=== PATIENT | male | born 1975 | race Two or more races ===

== ENCOUNTER 2017-10-19 22:37 | Emergency (ER) | payer SELFPAY ==
[~2017-10-19] VITALS: Ht 177.8 cm; Wt 99.8 kg
[2017-10-19] MEDS ORDERED: NIFEdipine 10 MG CAP ONE (23:03)
[2017-10-19] MEDS ORDERED: NIFEdipine 10 MG CAP PO ONE (23:15)
[2017-10-20] MEDS ORDERED: KETOROLAC TROMETH 60MG/2ML VIAL IM ONE (02:15)
[2017-10-20 02:38] VITALS: BP 154/93
== END 2017-10-20 03:08 | disposition home or self-care (01) ==
LOC: ER 22:44
DX: M17.11 Unilateral primary osteoarthritis, right knee (principal); I10 Essential (primary) hypertension; E11.9 Type 2 diabetes mellitus without complications
CPT/HCPCS: 73562; 96372; 99284; J1885

== ENCOUNTER 2018-03-22 10:37 | Emergency (ER) | payer SELFPAY ==
[~2018-03-22] VITALS: Ht 177.8 cm; Wt 98.9 kg
[2018-03-22] MEDS ORDERED: cloNIDine HCL 0.1 MG TAB ONE (11:04)
[2018-03-22] MEDS ORDERED: cloNIDine HCL 0.1 MG TAB PO ONE (11:15)
[2018-03-22 11:41] LABS: Basophils # (auto) 0.1 uL; Basophils % (auto) 0.7 % (0.0-2.0); Eosinophils # (auto) 0.1 uL; Eosinophils % (auto) 0.6 % (0.0-7.0); Hematocrit 31.6 % (41.0-53.0); Hemoglobin 11.2 g/dL (13.5-17.5); Lymphocytes # (auto) 0.6 uL; Lymphocytes % (auto) 3.9 % (10.0-50.0); Mean Corpuscular Hemoglobin 31.1 pg (28.0-32.0); Mean Corpuscular Hgb Conc. 35.4 g/dL (32.0-36.0); Mean Corpuscular Volume 87.8 fL (80.0-100.0); Monocytes # (auto) 0.8 uL; Monocytes % (auto) 5.8 % (0.0-12.0); Neutrophils # (auto) 12.9 uL; Platelet Count (auto) 261 10^3/uL (140-450); Red Cell Distribution Width 13.2 % (11.8-14.3); White Blood Cell 14.5 10^3/uL (4.4-10.8)
[2018-03-22 11:50] LABS: Urine Bacteria FEW /hpf (None Seen); Urine Blood 2+ /uL (Negative); Urine Specific Gravity 1.017 (1.001-1.035); Urine WBC 5 /hpf (0 - 3)
[2018-03-22 11:56] LABS: Albumin 2.7 g/dL (3.4-5.0); Calcium 7.1 mg/dL (8.5-10.1); INR 0.94 (0.9-1.15); Partial Thromboplastin Time 34.2 sec (23.78-33.04); Prothrombin Time 10.1 sec (9.27-12.13)
[2018-03-22] MEDS ORDERED: LABETALOL HCL 5 MG/ML ML 20ML VIAL IV ONE (12:00)
[2018-03-22 12:01] LABS: BUN/Creatinine Ratio 8.5; Bilirubin, Total 0.5 mg/dL (0.2-1.0); Total Protein 7.8 g/dL (6.4-8.2)
[2018-03-22 12:03] LABS: Potassium 2.6 mmol/L (3.5-5.1)
[2018-03-22] MEDS ORDERED: SODIUM CHLORIDE 0.9% 1,000 ML IV ONE (12:11)
[2018-03-22 12:45] LABS: Alcohol, Urine < 3.0 mg/dL (0-5); Amphetamine Screen, Urine NEGATIVE (NEGATIVE); Barbiturate Scree,Urine NEGATIVE (NEGATIVE); Benzodiazephine Screen, Urine NEGATIVE (NEGATIVE); Cannabinoid Screen, Urine NEGATIVE (NEGATIVE); Cocaine Screen, Urine NEGATIVE (NEGATIVE); Opiate Scree,Urine NEGATIVE (NEGATIVE); Phencyclidine Screen, Urine NEGATIVE (NEGATIVE)
[2018-03-22 14:36] VITALS: BP 153/91
== END 2018-03-22 15:43 | disposition short-term general hospital (02) ==
LOC: ER 10:37
DX: I10 Essential (primary) hypertension (principal); E11.65 Type 2 diabetes mellitus with hyperglycemia; N17.9 Acute kidney failure, unspecified; E43 Unspecified severe protein-calorie malnutrition; I61.9 Nontraumatic intracerebral hemorrhage, unspecified; R79.89 Other specified abnormal findings of blood chemistry
CPT/HCPCS: 36415; 70450; 71046; 80053; 80307; 81001; 82962; 83735; 84443; 84484; 85025; 85610; 85730; 93005; 94761; 96374

== ENCOUNTER 2020-11-27 20:28 | Emergency (ER) | payer MEDICAID, OTHER ==
[~2020-11-27] VITALS: Ht 177.8 cm; Wt 84.4 kg
[2020-11-27 23:02] LABS: Basophils # (auto) 0 10 ^3/uL (0-0.2); Basophils % (auto) 0.3 % (0.0-2.0); Eosinophils # (auto) 0 10 ^3/uL (0-0.8); Eosinophils % (auto) 0.1 % (0.0-7.0); Hematocrit 26.2 % (41.0-53.0); Hemoglobin 9.4 g/dL (13.5-17.5); Lymphocytes # (auto) 0.3 10 ^3/uL (0.4-5.4); Lymphocytes % (auto) 3.1 % (10.0-50.0); Mean Corpuscular Hemoglobin 33.6 pg (28.0-32.0); Mean Corpuscular Hgb Conc. 35.8 g/dL (32.0-36.0); Mean Corpuscular Volume 93.8 fL (80.0-100.0); Monocytes # (auto) 0.6 10 ^3/uL (0-1.3); Monocytes % (auto) 6.9 % (0.0-12.0); Neutrophils % (auto) 89.6 % (37.0-80.0); Nucleated Red Blood Cells % 0.1 %; Red Blood Cells 2.79 10^6/uL (4.5-5.90); Red Cell Distribution Width 14.2 % (11.8-14.3); White Blood Cell 8.9 10^3/uL (4.4-10.8)
[2020-11-27 23:24] LABS: Albumin 3.1 g/dL (3.4-5.0); Calcium 8.3 mg/dL (8.5-10.1); Magnesium 2.5 mg/dL (1.6-2.6); Potassium 3.3 mmol/L (3.5-5.1)
[2020-11-27 23:27] LABS: BUN/Creatinine Ratio 3.6
[2020-11-27 23:32] LABS: Bilirubin, Total 0.8 mg/dL (0.2-1.0); Total Protein 7.3 g/dL (6.4-8.2)
[2020-11-28 05:26] VITALS: BP 132/73
== END 2020-11-28 05:08 | disposition home or self-care (01) ==
LOC: EDBD 20:28 → ER 20:28
DX: D64.9 Anemia, unspecified (principal); R11.2 Nausea with vomiting, unspecified; R05 Cough; I12.0 Hypertensive chronic kidney disease with stage 5 chronic kidney disease or end stage renal disease; E11.22 Type 2 diabetes mellitus with diabetic chronic kidney disease; N18.6 End stage renal disease; Z99.2 Dependence on renal dialysis
CPT/HCPCS: 36415; 80053; 83735; 83880; 84484; 85025; 85049; 93005

== ENCOUNTER 2021-12-08 15:30 | Inpatient (IN) | payer MEDICAID ==
[~2021-12-08] VITALS: Ht 170.2 cm; Wt 81.7 kg
[2021-12-08] MEDS ORDERED: SUCCINYLCHOLINE CHLORIDE 20 MG/ML 10ML VIAL IV ONE ×2 (16:00→17:30)
[2021-12-08] MEDS ORDERED: ETOMIDATE (2MG/ML) 20ML VIAL IV ONE (16:00)
[2021-12-08] MEDS ORDERED: methylPREDNISolone SOD SUCC 125 MG/2 ML VL IV ONE (16:00)
[2021-12-08] MEDS: MIDAZOLAM DRIP 50 mg/50mL 50 ML IV SCH (16:05)
[2021-12-08] MEDS ORDERED: MIDAZOLAM DRIP 50 mg/50mL 50 ML IV ONE (16:07)
[2021-12-08] MEDS ORDERED: FUROSEMIDE 40 MG/4 ML VIAL ONE (16:12)
[2021-12-08] MEDS ORDERED: AZITHROMYCIN 500MG/ 250ML 250 ML IV ONE (16:15)
[2021-12-08] MEDS ORDERED: FUROSEMIDE 40 MG/4 ML VIAL IV ONE (16:30)
[2021-12-08] MEDS ORDERED: PROPOFOL 100 ML IV ONE ×2 (16:32→19:49)
[2021-12-08] MEDS: PROPOFOL 100 ML IV SCH (16:45)
[2021-12-08] MEDS ORDERED: FUROSEMIDE 100 MG/10ML VIAL IV ONE (17:45)
[2021-12-08 18:00] VITALS: BP 118/80
[2021-12-08] MEDS ORDERED: SODIUM CHL 0.9% 1000 ML BAG XX ONE (18:00)
[2021-12-08 18:25] LABS: Basophils # (auto) 0.1 10 ^3/uL (0-0.2); Basophils % (auto) 0.7 % (0.0-2.0); Eosinophils # (auto) 0.1 10 ^3/uL (0-0.8); Eosinophils % (auto) 0.6 % (0.0-7.0); Hematocrit 32.1 % (41.0-53.0); Hemoglobin 10.3 g/dL (13.5-17.5); Lymphocytes # (auto) 0.3 10 ^3/uL (0.4-5.4); Lymphocytes % (auto) 2.4 % (10.0-50.0); Mean Corpuscular Hemoglobin 29.4 pg (28.0-32.0); Mean Corpuscular Hgb Conc. 32.1 g/dL (32.0-36.0); Mean Corpuscular Volume 91.7 fL (80.0-100.0); Monocytes # (auto) 0.3 10 ^3/uL (0-1.3); Monocytes % (auto) 2.4 % (0.0-12.0); Neutrophils # (auto) 10.8 10 ^3/uL (1.6-8.6); Neutrophils % (auto) 93.9 % (37.0-80.0); Red Cell Distribution Width 16.6 % (11.8-14.3); White Blood Cell 11.5 10^3/uL (4.4-10.8)
[2021-12-08 18:41] LABS: Albumin 3.1 g/dL (3.4-5.0); Calcium 8.2 mg/dL (8.5-10.1); Magnesium 3.3 mg/dL (1.6-2.6)
[2021-12-08 18:46] LABS: Lactic Acid w/Reflex 2.6 mmol/L (0.4-2.0)
[2021-12-08 18:51] LABS: BUN/Creatinine Ratio 4.2; CRP High Sensitivity 4.85 mg/dL (< 0.3); Total Protein 7.3 g/dL (6.4-8.2)
[2021-12-08 19:02] LABS: Potassium 6.1 mmol/L (3.5-5.1)
[2021-12-08] MEDS ORDERED: ONDANSETRON HCL 4 MG/2 ML VIAL IV PRN (19:30)
[2021-12-08] MEDS ORDERED: DOCUSATE SOD 100 MG CAP PO PRN (19:30)
[2021-12-08] MEDS ORDERED: HYDROcodone-ACET 5/325MG TAB PO PRN (19:30)
[2021-12-08] MEDS ORDERED: NOREPINEPHRINE 8 MG/250ML KIT 250 ML IV ONE (19:33)
[2021-12-08] MEDS ORDERED: ALBUMIN 25% 100 ML IV ONE ×2 (19:49→19:57)
[2021-12-08] MEDS: ALBUMIN 25% 100 ML IV PRN ×2 (19:50→20:41)
[2021-12-08 20:00] VITALS: BP 112/78
[2021-12-08] MEDS: NOREPINEPHRINE 8 MG/250ML KIT 250 ML IV SCH (20:18)
[2021-12-08] MEDS ORDERED: REMDESIVIR PER PHARMACY 0 ML IV SCH (21:00)
[2021-12-08 21:41] VITALS: BP 88/60
[2021-12-08 22:00] VITALS: BP 126/87
[2021-12-08 22:36] LABS: INR 1.1 (0.9-1.15); Partial Thromboplastin Time 31.4 sec (23.6-33.0)
[2021-12-09] VITALS (57 sets, daily range): BP systolic 118–163; BP diastolic 47–92
[2021-12-09 06:07] LABS: Basophils # (auto) 0 10 ^3/uL (0-0.2); Basophils % (auto) 0.2 % (0.0-2.0); Eosinophils # (auto) 0 10 ^3/uL (0-0.8); Hematocrit 27.1 % (41.0-53.0); Hemoglobin 8.9 g/dL (13.5-17.5); Lymphocytes # (auto) 0.3 10 ^3/uL (0.4-5.4); Lymphocytes % (auto) 5.3 % (10.0-50.0); Mean Corpuscular Volume 90.9 fL (80.0-100.0); Monocytes # (auto) 0.5 10 ^3/uL (0-1.3); Monocytes % (auto) 7.8 % (0.0-12.0); Neutrophils # (auto) 5.4 10 ^3/uL (1.6-8.6); Neutrophils % (auto) 86.7 % (37.0-80.0); Red Blood Cells 2.98 10^6/uL (4.5-5.90); Red Cell Distribution Width 16.4 % (11.8-14.3); White Blood Cell 6.2 10^3/uL (4.4-10.8)
[2021-12-09 06:22] LABS: Potassium 4.8 mmol/L (3.5-5.1)
[2021-12-09 06:33] LABS: Albumin 3.3 g/dL (3.4-5.0); BUN/Creatinine Ratio 4.4; Bilirubin, Total 0.9 mg/dL (0.2-1.0); Calcium 8.6 mg/dL (8.5-10.1); Total Protein 6.8 g/dL (6.4-8.2)
[2021-12-09] MEDS ORDERED: ENOXAPARIN SOD 30 MG/0.3 ML SYRINGE SC SCH (10:00)
[2021-12-09] MEDS: PROPOFOL 100 ML IV SCH (11:18)
[2021-12-09] MEDS ORDERED: IOHEXOL 350 MG/ML 100ML IJ ONE (12:14)
[2021-12-09] MEDS: IPRATROPIUM BROM 0.5 MG/2.5ML INH SOL NEB SCH ×3 (14:16→22:02)
[2021-12-09] MEDS ORDERED: OPTISON 3ml Vial for INJ IV ONE ×2 (14:30→15:00)
[2021-12-09] MEDS: NOREPINEPHRINE 8 MG/250ML KIT 250 ML IV SCH (19:45)
[2021-12-09] MEDS: ATORVASTATIN 20 MG TAB PO SCH (20:40)
[2021-12-09] MEDS: ENALAPRIL MALEATE 2.5 MG TAB PO SCH (20:41)
[2021-12-09] MEDS: METOPROLOL TARTRATE 25 MG TAB PO SCH (20:41)
[2021-12-09] MEDS: hydrALAZINE HCL 20 MG/ML VL IV PRN (23:09)
[2021-12-10] VITALS (82 sets, daily range): BP systolic 105–164; BP diastolic 69–87
[2021-12-10] MEDS: IPRATROPIUM BROM 0.5 MG/2.5ML INH SOL NEB SCH ×6 (02:42→22:11)
[2021-12-10] MEDS: PROPOFOL 100 ML IV SCH ×3 (03:55→22:14)
[2021-12-10] MEDS: MIDAZOLAM DRIP 50 mg/50mL 50 ML IV SCH ×2 (03:56→19:29)
[2021-12-10 06:28] LABS: Basophils # (auto) 0 10 ^3/uL (0-0.2); Basophils % (auto) 0.7 % (0.0-2.0); Eosinophils # (auto) 0.1 10 ^3/uL (0-0.8); Lymphocytes # (auto) 0.5 10 ^3/uL (0.4-5.4); Lymphocytes % (auto) 6.8 % (10.0-50.0); Mean Corpuscular Hemoglobin 30.1 pg (28.0-32.0); Mean Corpuscular Hgb Conc. 33.4 g/dL (32.0-36.0); Mean Corpuscular Volume 90.3 fL (80.0-100.0); Monocytes # (auto) 0.6 10 ^3/uL (0-1.3); Monocytes % (auto) 8.4 % (0.0-12.0); Neutrophils # (auto) 5.9 10 ^3/uL (1.6-8.6); Neutrophils % (auto) 83.1 % (37.0-80.0); Red Blood Cells 2.99 10^6/uL (4.5-5.90); Red Cell Distribution Width 16.7 % (11.8-14.3); White Blood Cell 7.1 10^3/uL (4.4-10.8)
[2021-12-10 06:46] LABS: BUN/Creatinine Ratio 5.5; Calcium 8.6 mg/dL (8.5-10.1); Potassium 5.2 mmol/L (3.5-5.1)
[2021-12-10] MEDS ORDERED: SODIUM CHL 0.9% 1000 ML BAG XX ONE (07:00)
[2021-12-10] MEDS: PANTOPRAZOLE 40 MG/10 ML VIAL INJ IV SCH (09:05)
[2021-12-10] MEDS: AZITHROMYCIN 500MG/ 250ML 250 ML IV SCH (09:05)
[2021-12-10] MEDS: ENALAPRIL MALEATE 2.5 MG TAB PO SCH ×2 (10:00→22:28)
[2021-12-10] MEDS: METOPROLOL TARTRATE 25 MG TAB PO SCH ×2 (10:00→22:00)
[2021-12-10] MEDS: hydrALAZINE HCL 20 MG/ML VL IV PRN (15:08)
[2021-12-10] MEDS: NOREPINEPHRINE 8 MG/250ML KIT 250 ML IV SCH (19:29)
[2021-12-10] MEDS: ACETAMINOPHEN 325 MG TAB PO PRN (19:35)
[2021-12-10] MEDS: ATORVASTATIN 20 MG TAB PO SCH (22:28)
[2021-12-11] VITALS (78 sets, daily range): BP systolic 133–184; BP diastolic 39–88
[2021-12-11] MEDS: hydrALAZINE HCL 20 MG/ML VL IV PRN ×4 (01:55→22:47)
[2021-12-11] MEDS: PROPOFOL 100 ML IV SCH ×2 (02:07→05:45)
[2021-12-11] MEDS: IPRATROPIUM BROM 0.5 MG/2.5ML INH SOL NEB SCH ×5 (02:33→18:13)
[2021-12-11 06:11] LABS: Basophils # (auto) 0 10 ^3/uL (0-0.2); Basophils % (auto) 0.7 % (0.0-2.0); Eosinophils # (auto) 0.1 10 ^3/uL (0-0.8); Hematocrit 26.5 % (41.0-53.0); Hemoglobin 8.9 g/dL (13.5-17.5); Lymphocytes # (auto) 0.6 10 ^3/uL (0.4-5.4); Lymphocytes % (auto) 8.6 % (10.0-50.0); Mean Corpuscular Hemoglobin 30.2 pg (28.0-32.0); Mean Corpuscular Hgb Conc. 33.4 g/dL (32.0-36.0); Mean Corpuscular Volume 90.2 fL (80.0-100.0); Monocytes # (auto) 0.6 10 ^3/uL (0-1.3); Monocytes % (auto) 9.9 % (0.0-12.0); Neutrophils # (auto) 5.1 10 ^3/uL (1.6-8.6); Neutrophils % (auto) 78.8 % (37.0-80.0); Nucleated Red Blood Cells % 0.2 %; Red Blood Cells 2.94 10^6/uL (4.5-5.90); Red Cell Distribution Width 16.4 % (11.8-14.3); White Blood Cell 6.5 10^3/uL (4.4-10.8)
[2021-12-11 06:18] LABS: BUN/Creatinine Ratio 5.2; Calcium 8.7 mg/dL (8.5-10.1); Potassium 4.5 mmol/L (3.5-5.1)
[2021-12-11] MEDS ORDERED: cloNIDine 0.2 mg/24hr 7DAY PATCH TD SCH (08:00)
[2021-12-11] MEDS: AZITHROMYCIN 500MG/ 250ML 250 ML IV SCH (08:47)
[2021-12-11] MEDS: PANTOPRAZOLE 40 MG/10 ML VIAL INJ IV SCH (08:47)
[2021-12-11] MEDS: ENALAPRIL MALEATE 2.5 MG TAB PO SCH ×2 (09:56→22:00)
[2021-12-11] MEDS: METOPROLOL TARTRATE 25 MG TAB PO SCH ×2 (09:56→22:00)
[2021-12-11] MEDS: MIDAZOLAM DRIP 50 mg/50mL 50 ML IV SCH (16:46)
[2021-12-11] MEDS: LORazepam 2MG/ML-1ML VIAL IV PRN (17:51)
[2021-12-11] MEDS: NOREPINEPHRINE 8 MG/250ML KIT 250 ML IV SCH (19:45)
[2021-12-11] MEDS: ATORVASTATIN 20 MG TAB PO SCH (22:00)
[2021-12-12] VITALS (27 sets, daily range): BP systolic 140–180; BP diastolic 58–92
[2021-12-12] MEDS: hydrALAZINE HCL 20 MG/ML VL IV PRN ×2 (02:47→06:48)
[2021-12-12] MEDS ORDERED: ALBUTEROL SULF 2.5 MG/0.5ML(0.5%) NEB SOLN NEB SCH (06:00)
[2021-12-12] MEDS ORDERED: IPRATROPIUM BROM 0.5 MG/2.5ML INH SOL NEB SCH (06:00)
[2021-12-12 06:28] LABS: Basophils # (auto) 0 10 ^3/uL (0-0.2); Basophils % (auto) 0.7 % (0.0-2.0); Eosinophils # (auto) 0.2 10 ^3/uL (0-0.8); Eosinophils % (auto) 2.5 % (0.0-7.0); Hematocrit 28.4 % (41.0-53.0); Hemoglobin 9.3 g/dL (13.5-17.5); Lymphocytes # (auto) 0.4 10 ^3/uL (0.4-5.4); Mean Corpuscular Hemoglobin 29.7 pg (28.0-32.0); Mean Corpuscular Hgb Conc. 32.8 g/dL (32.0-36.0); Mean Corpuscular Volume 90.6 fL (80.0-100.0); Monocytes # (auto) 0.6 10 ^3/uL (0-1.3); Monocytes % (auto) 9.5 % (0.0-12.0); Neutrophils # (auto) 5.5 10 ^3/uL (1.6-8.6); Neutrophils % (auto) 81.3 % (37.0-80.0); Red Blood Cells 3.13 10^6/uL (4.5-5.90); Red Cell Distribution Width 16.5 % (11.8-14.3); White Blood Cell 6.8 10^3/uL (4.4-10.8)
[2021-12-12 06:30] LABS: BUN/Creatinine Ratio 5.6; Potassium 4.6 mmol/L (3.5-5.1)
[2021-12-12] MEDS ORDERED: SODIUM CHL 0.9% 1000 ML BAG XX ONE (07:00)
[2021-12-12] MEDS: AZITHROMYCIN 500MG/ 250ML 250 ML IV SCH (09:53)
[2021-12-12] MEDS: PANTOPRAZOLE 40 MG/10 ML VIAL INJ IV SCH (09:53)
[2021-12-12] MEDS: ASCORBIC ACID 500 MG TAB PO SCH (09:54)
[2021-12-12] MEDS: METOPROLOL TARTRATE 25 MG TAB PO SCH (09:54)
[2021-12-12] MEDS: ENALAPRIL MALEATE 2.5 MG TAB PO SCH (09:54)
[2021-12-12] MEDS: ZINC SULFATE 220mg CAP or TAB PO SCH (09:54)
[2021-12-12] MEDS: CHOLECALCIFEROL (VITD3) 2,000 UNIT CAP/TAB PO SCH (09:55)
[2021-12-12] MEDS: NOREPINEPHRINE 8 MG/250ML KIT 250 ML IV SCH (19:45)
[2021-12-12] MEDS ORDERED: EPOETIN ALFA-EPBX 4,000 UNIT/ML VIAL SC ONE (21:00)
[2021-12-13] VITALS (60 sets, daily range): BP systolic 141–190; BP diastolic 68–93
[2021-12-13] MEDS ORDERED: ALBUTEROL SULF 2.5 MG/0.5ML(0.5%) NEB SOLN NEB PRN
[2021-12-13] MEDS ORDERED: IPRATROPIUM BROM 0.5 MG/2.5ML INH SOL NEB PRN
[2021-12-13] MEDS: ENALAPRIL MALEATE 2.5 MG TAB PO SCH ×2 (00:09→08:47)
[2021-12-13] MEDS: ATORVASTATIN 20 MG TAB PO SCH ×2 (00:09→22:32)
[2021-12-13] MEDS: METOPROLOL TARTRATE 25 MG TAB PO SCH ×3 (00:09→22:33)
[2021-12-13] MEDS: hydrALAZINE HCL 20 MG/ML VL IV PRN ×4 (00:24→23:33)
[2021-12-13 05:51] LABS: BUN/Creatinine Ratio 4.8; Calcium 9.4 mg/dL (8.5-10.1); Potassium 3.6 mmol/L (3.5-5.1)
[2021-12-13 05:54] LABS: Basophils # (auto) 0 10 ^3/uL (0-0.2); Basophils % (auto) 0.9 % (0.0-2.0); Eosinophils # (auto) 0.2 10 ^3/uL (0-0.8); Eosinophils % (auto) 3.6 % (0.0-7.0); Hemoglobin 9.3 g/dL (13.5-17.5); Lymphocytes # (auto) 0.4 10 ^3/uL (0.4-5.4); Lymphocytes % (auto) 7.2 % (10.0-50.0); Mean Corpuscular Hgb Conc. 33.3 g/dL (32.0-36.0); Mean Corpuscular Volume 90.1 fL (80.0-100.0); Monocytes # (auto) 0.7 10 ^3/uL (0-1.3); Monocytes % (auto) 13.4 % (0.0-12.0); Neutrophils # (auto) 3.9 10 ^3/uL (1.6-8.6); Neutrophils % (auto) 74.9 % (37.0-80.0); Red Blood Cells 3.11 10^6/uL (4.5-5.90); White Blood Cell 5.2 10^3/uL (4.4-10.8)
[2021-12-13] MEDS: NOREPINEPHRINE 8 MG/250ML KIT 250 ML IV SCH (07:31)
[2021-12-13] MEDS: AZITHROMYCIN 500MG/ 250ML 250 ML IV SCH (08:44)
[2021-12-13] MEDS: ASCORBIC ACID 500 MG TAB PO SCH (08:44)
[2021-12-13] MEDS: PANTOPRAZOLE 40 MG/10 ML VIAL INJ IV SCH (08:44)
[2021-12-13] MEDS: CHOLECALCIFEROL (VITD3) 2,000 UNIT CAP/TAB PO SCH (08:45)
[2021-12-13] MEDS: ZINC SULFATE 220mg CAP or TAB PO SCH (08:48)
[2021-12-13] MEDS ORDERED: amLODIPine BESYLATE 5 MG TAB PO SCH (10:00)
[2021-12-13] MEDS ORDERED: cloNIDine 0.2 mg/24hr 7DAY PATCH TD SCH (10:45)
[2021-12-13] MEDS ORDERED: METOPROLOL TARTRATE 25 MG TAB PO ONE (11:00)
[2021-12-13] MEDS: NIFEdipine ER 30 MG TAB PO SCH (11:07)
[2021-12-13] MEDS ORDERED: cloNIDine 0.3 mg/24hr 7DAY PATCH TD SCH (12:30)
[2021-12-13] MEDS: LOSARTAN POTASSIUM 50 MG TAB PO SCH (22:31)
[2021-12-13] MEDS: LORazepam 2MG/ML-1ML VIAL IV PRN (23:30)
[2021-12-14 05:00] VITALS: BP 165/79
[2021-12-14] MEDS: hydrALAZINE HCL 20 MG/ML VL IV PRN ×2 (05:10→22:57)
[2021-12-14 06:29] LABS: Basophils # (auto) 0.1 10 ^3/uL (0-0.2); Basophils % (auto) 1.1 % (0.0-2.0); Eosinophils # (auto) 0.2 10 ^3/uL (0-0.8); Eosinophils % (auto) 3.1 % (0.0-7.0); Lymphocytes # (auto) 0.6 10 ^3/uL (0.4-5.4); Lymphocytes % (auto) 7.6 % (10.0-50.0); Mean Corpuscular Hemoglobin 30.1 pg (28.0-32.0); Mean Corpuscular Hgb Conc. 33.3 g/dL (32.0-36.0); Mean Corpuscular Volume 90.4 fL (80.0-100.0); Monocytes % (auto) 13.1 % (0.0-12.0); Neutrophils # (auto) 5.5 10 ^3/uL (1.6-8.6); Neutrophils % (auto) 75.1 % (37.0-80.0); Nucleated Red Blood Cells % 0.1 %; Red Blood Cells 3.32 10^6/uL (4.5-5.90); Red Cell Distribution Width 16.2 % (11.8-14.3); White Blood Cell 7.3 10^3/uL (4.4-10.8)
[2021-12-14 06:36] LABS: BUN/Creatinine Ratio 5.1
[2021-12-14 09:44] VITALS: BP 157/81
[2021-12-14] MEDS: PANTOPRAZOLE 40 MG/10 ML VIAL INJ IV SCH (10:03)
[2021-12-14] MEDS: ZINC SULFATE 220mg CAP or TAB PO SCH (10:03)
[2021-12-14] MEDS: AZITHROMYCIN 500MG/ 250ML 250 ML IV SCH (10:03)
[2021-12-14] MEDS: ASCORBIC ACID 500 MG TAB PO SCH (10:04)
[2021-12-14] MEDS: METOPROLOL TARTRATE 25 MG TAB PO SCH ×2 (10:04→21:12)
[2021-12-14] MEDS: NIFEdipine ER 30 MG TAB PO SCH (10:04)
[2021-12-14] MEDS: LOSARTAN POTASSIUM 50 MG TAB PO SCH ×2 (10:04→21:11)
[2021-12-14] MEDS: CHOLECALCIFEROL (VITD3) 2,000 UNIT CAP/TAB PO SCH (10:05)
[2021-12-14] MEDS ORDERED: LACTULOSE 20Gm/30ML SOLN PO PRN (11:45)
[2021-12-14] MEDS ORDERED: DOCUSATE SOD 100 MG CAP PO PRN (11:45)
[2021-12-14 12:55] VITALS: BP 144/86
[2021-12-14] MEDS: LORazepam 2MG/ML-1ML VIAL IV PRN (21:10)
[2021-12-14] MEDS: ATORVASTATIN 20 MG TAB PO SCH (21:14)
[2021-12-14 22:00] VITALS: BP 168/84
[2021-12-15 05:00] VITALS: BP 154/75
[2021-12-15 06:31] LABS: Basophils # (auto) 0.1 10 ^3/uL (0-0.2); Basophils % (auto) 1.5 % (0.0-2.0); Eosinophils # (auto) 0.2 10 ^3/uL (0-0.8); Eosinophils % (auto) 3.4 % (0.0-7.0); Hematocrit 29.4 % (41.0-53.0); Hemoglobin 9.6 g/dL (13.5-17.5); Lymphocytes # (auto) 0.8 10 ^3/uL (0.4-5.4); Lymphocytes % (auto) 11.6 % (10.0-50.0); Mean Corpuscular Hemoglobin 29.5 pg (28.0-32.0); Mean Corpuscular Hgb Conc. 32.7 g/dL (32.0-36.0); Mean Corpuscular Volume 90.5 fL (80.0-100.0); Monocytes # (auto) 0.9 10 ^3/uL (0-1.3); Monocytes % (auto) 14.2 % (0.0-12.0); Neutrophils # (auto) 4.5 10 ^3/uL (1.6-8.6); Neutrophils % (auto) 69.3 % (37.0-80.0); Red Blood Cells 3.25 10^6/uL (4.5-5.90); Red Cell Distribution Width 16.1 % (11.8-14.3); White Blood Cell 6.5 10^3/uL (4.4-10.8)
[2021-12-15 06:39] LABS: Potassium 4.1 mmol/L (3.5-5.1)
[2021-12-15 06:49] LABS: BUN/Creatinine Ratio 5.3; Calcium 9.5 mg/dL (8.5-10.1)
[2021-12-15] MEDS ORDERED: SODIUM CHL 0.9% 1000 ML BAG XX ONE (07:00)
[2021-12-15 09:00] VITALS: BP 168/66
[2021-12-15] MEDS: PANTOPRAZOLE 40 MG/10 ML VIAL INJ IV SCH (10:00)
[2021-12-15] MEDS: ZINC SULFATE 220mg CAP or TAB PO SCH (10:00)
[2021-12-15] MEDS: CHOLECALCIFEROL (VITD3) 2,000 UNIT CAP/TAB PO SCH (10:00)
[2021-12-15] MEDS: AZITHROMYCIN 500MG/ 250ML 250 ML IV SCH (10:00)
[2021-12-15] MEDS: NIFEdipine ER 30 MG TAB PO SCH (10:00)
[2021-12-15] MEDS: LOSARTAN POTASSIUM 50 MG TAB PO SCH ×2 (10:00→21:05)
[2021-12-15] MEDS: ASCORBIC ACID 500 MG TAB PO SCH (10:00)
[2021-12-15] MEDS: METOPROLOL TARTRATE 25 MG TAB PO SCH ×2 (10:00→21:06)
[2021-12-15] MEDS: hydrALAZINE HCL 20 MG/ML VL IV PRN (10:03)
[2021-12-15 17:11] VITALS: BP 170/92
[2021-12-15] MEDS: ATORVASTATIN 20 MG TAB PO SCH (21:06)
[2021-12-15 22:23] VITALS: BP 167/87
[2021-12-15] MEDS: LORazepam 2MG/ML-1ML VIAL IV PRN (22:45)
[2021-12-16] MEDS: hydrALAZINE HCL 20 MG/ML VL IV PRN ×2 (04:00→17:46)
[2021-12-16 05:01] VITALS: BP 168/83
[2021-12-16 05:46] LABS: Basophils # (auto) 0.1 10 ^3/uL (0-0.2); Eosinophils # (auto) 0.1 10 ^3/uL (0-0.8); Eosinophils % (auto) 1.3 % (0.0-7.0); Hematocrit 30.8 % (41.0-53.0); Lymphocytes # (auto) 0.5 10 ^3/uL (0.4-5.4); Lymphocytes % (auto) 5.7 % (10.0-50.0); Mean Corpuscular Hemoglobin 29.6 pg (28.0-32.0); Mean Corpuscular Hgb Conc. 32.5 g/dL (32.0-36.0); Mean Corpuscular Volume 91.1 fL (80.0-100.0); Monocytes # (auto) 1.1 10 ^3/uL (0-1.3); Monocytes % (auto) 11.8 % (0.0-12.0); Neutrophils # (auto) 7.5 10 ^3/uL (1.6-8.6); Neutrophils % (auto) 80.2 % (37.0-80.0); Red Blood Cells 3.38 10^6/uL (4.5-5.90); Red Cell Distribution Width 16.3 % (11.8-14.3); White Blood Cell 9.4 10^3/uL (4.4-10.8)
[2021-12-16 06:02] LABS: BUN/Creatinine Ratio 5.1; Calcium 9.5 mg/dL (8.5-10.1); Potassium 4.4 mmol/L (3.5-5.1)
[2021-12-16 08:15] VITALS: BP 153/80
[2021-12-16] MEDS: PANTOPRAZOLE 40 MG/10 ML VIAL INJ IV SCH (09:00)
[2021-12-16] MEDS: AZITHROMYCIN 500MG/ 250ML 250 ML IV SCH (09:01)
[2021-12-16] MEDS: CHOLECALCIFEROL (VITD3) 2,000 UNIT CAP/TAB PO SCH (09:01)
[2021-12-16] MEDS: ZINC SULFATE 220mg CAP or TAB PO SCH (09:01)
[2021-12-16] MEDS: ASCORBIC ACID 500 MG TAB PO SCH (09:01)
[2021-12-16] MEDS: NIFEdipine ER 30 MG TAB PO SCH (09:03)
[2021-12-16] MEDS: LOSARTAN POTASSIUM 50 MG TAB PO SCH ×2 (09:03→21:41)
[2021-12-16] MEDS: METOPROLOL TARTRATE 25 MG TAB PO SCH ×2 (09:04→21:41)
[2021-12-16 12:31] VITALS: BP 138/71
[2021-12-16 16:05] VITALS: BP 159/77
[2021-12-16] MEDS: ATORVASTATIN 20 MG TAB PO SCH (21:41)
[2021-12-16] MEDS: LORazepam 2MG/ML-1ML VIAL IV PRN (21:44)
[2021-12-16 22:00] VITALS: BP 140/72
[2021-12-17 05:00] VITALS: BP 152/82
[2021-12-17] MEDS ORDERED: SODIUM CHL 0.9% 1000 ML BAG XX ONE (07:00)
[2021-12-17 09:22] VITALS: BP 162/78
[2021-12-17] MEDS: AZITHROMYCIN 500MG/ 250ML 250 ML IV SCH (10:52)
[2021-12-17] MEDS: PANTOPRAZOLE 40 MG/10 ML VIAL INJ IV SCH (10:53)
[2021-12-17] MEDS: METOPROLOL TARTRATE 25 MG TAB PO SCH ×2 (10:54→21:41)
[2021-12-17] MEDS: ASCORBIC ACID 500 MG TAB PO SCH (10:54)
[2021-12-17] MEDS: NIFEdipine ER 30 MG TAB PO SCH (10:54)
[2021-12-17] MEDS: CHOLECALCIFEROL (VITD3) 2,000 UNIT CAP/TAB PO SCH (10:55)
[2021-12-17] MEDS: ZINC SULFATE 220mg CAP or TAB PO SCH (10:55)
[2021-12-17] MEDS: LOSARTAN POTASSIUM 50 MG TAB PO SCH ×2 (10:57→21:40)
[2021-12-17 13:00] VITALS: BP 157/79
[2021-12-17 16:15] VITALS: BP 139/79
[2021-12-17 20:00] VITALS: BP 139/79
[2021-12-17] MEDS: ATORVASTATIN 20 MG TAB PO SCH (21:41)
[2021-12-17] MEDS: LORazepam 2MG/ML-1ML VIAL IV PRN (22:31)
[2021-12-18 05:00] VITALS: BP 152/82
[2021-12-18 09:00] VITALS: BP 149/76
[2021-12-18] MEDS: LOSARTAN POTASSIUM 50 MG TAB PO SCH ×2 (10:00→23:01)
[2021-12-18] MEDS: AZITHROMYCIN 500MG/ 250ML 250 ML IV SCH (10:00)
[2021-12-18] MEDS: METOPROLOL TARTRATE 25 MG TAB PO SCH ×2 (10:00→23:03)
[2021-12-18] MEDS: NIFEdipine ER 30 MG TAB PO SCH (10:00)
[2021-12-18] MEDS: ASCORBIC ACID 500 MG TAB PO SCH (10:00)
[2021-12-18] MEDS: ZINC SULFATE 220mg CAP or TAB PO SCH (10:00)
[2021-12-18] MEDS: CHOLECALCIFEROL (VITD3) 2,000 UNIT CAP/TAB PO SCH (10:00)
[2021-12-18] MEDS: PANTOPRAZOLE 40 MG/10 ML VIAL INJ IV SCH (11:02)
[2021-12-18 13:00] VITALS: BP 132/50
[2021-12-18 17:00] VITALS: BP 149/51
[2021-12-18 22:00] VITALS: BP 161/91
[2021-12-18] MEDS: ATORVASTATIN 20 MG TAB PO SCH (23:02)
[2021-12-18] MEDS: ACETAMINOPHEN 325 MG TAB PO PRN (23:04)
[2021-12-19 03:09] VITALS: BP 136/88
== END 2021-12-19 03:52 | disposition short-term general hospital (02) | DRG 720 ==
LOC: EDUNIT# 15:30 → ER 15:30 → TELE 19:30 → DOU IN ICU 12-09 08:02 → ICU CENTRL 12-09 10:03 → TELE-CENTR 12-13 15:00
PROVIDERS: ADMIT Internal Medicine; ATTEND Nurse Practitioner
PROC: 5A1945Z Respiratory Ventilation, 24-96 Consecutive Hours (ICD-10-PCS; principal; 2021-12-08)
PROC: 0BH17EZ Insertion of Endotracheal Airway into Trachea, Via Natural or Artificial Opening (ICD-10-PCS; 2021-12-08)
PROC: 06HM33Z Insertion of Infusion Device into Right Femoral Vein, Percutaneous Approach (ICD-10-PCS; 2021-12-08)
PROC: 5A1D70Z Performance of Urinary Filtration, Intermittent, Less than 6 Hours Per Day (ICD-10-PCS; 2021-12-08)
PROC: 5A1D70Z Performance of Urinary Filtration, Intermittent, Less than 6 Hours Per Day (ICD-10-PCS; 2021-12-10)
PROC: 5A1D70Z Performance of Urinary Filtration, Intermittent, Less than 6 Hours Per Day (ICD-10-PCS; 2021-12-12)
PROC: 5A1D70Z Performance of Urinary Filtration, Intermittent, Less than 6 Hours Per Day (ICD-10-PCS; 2021-12-15)
PROC: 5A1D70Z Performance of Urinary Filtration, Intermittent, Less than 6 Hours Per Day (ICD-10-PCS; 2021-12-18)
DX: A41.9 Sepsis, unspecified organism (principal); J96.01 Acute respiratory failure with hypoxia; J12.82 Pneumonia due to coronavirus disease 2019; R65.21 Severe sepsis with septic shock; G92.8 Other toxic encephalopathy; U07.1 COVID-19; G93.1 Anoxic brain damage, not elsewhere classified; I16.1 Hypertensive emergency; N40.0 Benign prostatic hyperplasia without lower urinary tract symptoms; N18.6 End stage renal disease; D63.1 Anemia in chronic kidney disease; E87.5 Hyperkalemia; E11.22 Type 2 diabetes mellitus with diabetic chronic kidney disease; I50.20 Unspecified systolic (congestive) heart failure; Z20.822 Contact with and (suspected) exposure to COVID-19; I13.2 Hypertensive heart and chronic kidney disease with heart failure and with stage 5 chronic kidney disease, or end stage renal disease; Z79.899 Other long term (current) drug therapy; Z80.0 Family history of malignant neoplasm of digestive organs; Z85.028 Personal history of other malignant neoplasm of stomach; Z86.73 Personal history of transient ischemic attack (TIA), and cerebral infarction without residual deficits; Z99.2 Dependence on renal dialysis
CPT/HCPCS: 36415; 36600; 70450; 71045; 71275; 80048; 80053; 82728; 82805; 83605; 83735; 83880; 84484; 85025; 85379; 85610; 85730; 86141; 87040; 87070; 87081; 87205; 87340; 90935; 92610; 93005; 93306; 93886; 94002; 94003; 94640; 94660; 95819; 96374; 97163; 99291; C9113; G0378; J2250; J2704; J7060; P9047; Q9956

== ENCOUNTER 2022-06-09 12:14 | Inpatient (IN) | payer MEDICAID ==
[~2022-06-09] VITALS: Ht 177.8 cm; Wt 75.0 kg
[2022-06-09] MEDS ORDERED: LABETALOL HCL 5 MG/ML 4ML SYRINGE IV ONE (12:30)
[2022-06-09 12:46] LABS: Basophils # (auto) 0.1 10 ^3/uL (0-0.2); Basophils % (auto) 1.3 % (0.0-2.0); Eosinophils # (auto) 0 10 ^3/uL (0-0.8); Eosinophils % (auto) 0.7 % (0.0-7.0); Hematocrit 29.5 % (41.0-53.0); Hemoglobin 9.7 g/dL (13.5-17.5); Lymphocytes # (auto) 0.8 10 ^3/uL (0.4-5.4); Lymphocytes % (auto) 11.8 % (10.0-50.0); Mean Corpuscular Hemoglobin 31.1 pg (28.0-32.0); Mean Corpuscular Hgb Conc. 32.9 g/dL (32.0-36.0); Mean Corpuscular Volume 94.4 fL (80.0-100.0); Monocytes # (auto) 0.5 10 ^3/uL (0-1.3); Monocytes % (auto) 7.9 % (0.0-12.0); Neutrophils # (auto) 5.4 10 ^3/uL (1.6-8.6); Neutrophils % (auto) 78.3 % (37.0-80.0); Red Blood Cells 3.12 10^6/uL (4.5-5.90); Red Cell Distribution Width 16.6 % (11.8-14.3); White Blood Cell 6.8 10^3/uL (4.4-10.8)
[2022-06-09 12:56] LABS: Albumin 3.6 g/dL (3.4-5.0); Calcium 8.5 mg/dL (8.5-10.1); Potassium 4.6 mmol/L (3.5-5.1)
[2022-06-09 13:00] LABS: BUN/Creatinine Ratio 5.9; Bilirubin, Total 0.6 mg/dL (0.2-1.0); Total Protein 6.7 g/dL (6.4-8.2)
[2022-06-09] MEDS ORDERED: ENOXAPARIN SOD 80 MG/0.8ML SYRINGE SC ONE (15:30)
[2022-06-09] MEDS ORDERED: NITROGLYCERIN 0.4 MG SL TAB SL PRN (17:00)
[2022-06-09] MEDS ORDERED: ACETAMINOPHEN 500 MG TAB PO PRN (17:00)
[2022-06-09] MEDS ORDERED: ONDANSETRON HCL 4 MG/2 ML VIAL IV PRN (17:00)
[2022-06-09] MEDS: hydrALAZINE HCL 20 MG/ML VL IV PRN (20:11)
[2022-06-09] MEDS: MORPHINE SULFATE INJ 2 MG/ml SYRG IV PRN (20:12)
[2022-06-09] MEDS ORDERED: ATORVASTATIN 20 MG TAB PO SCH (22:00)
[2022-06-09] MEDS: METOPROLOL TARTRATE 25 MG TAB PO SCH (22:42)
[2022-06-10] VITALS (7 sets, daily range): BP systolic 128–154; BP diastolic 72–87
[2022-06-10] MEDS: MORPHINE SULFATE INJ 2 MG/ml SYRG IV PRN ×3 (00:07→14:23)
[2022-06-10] MEDS: hydrALAZINE HCL 20 MG/ML VL IV PRN ×3 (01:25→17:23)
[2022-06-10] MEDS: HYDROcodone-ACET 5/325MG TAB PO PRN ×3 (01:25→22:15)
[2022-06-10] MEDS: TEMAZEPAM 15 MG CAP PO PRN ×2 (01:58→23:58)
[2022-06-10 05:21] LABS: Basophils # (auto) 0.1 10 ^3/uL (0-0.2); Basophils % (auto) 1.1 % (0.0-2.0); Eosinophils # (auto) 0.1 10 ^3/uL (0-0.8); Hematocrit 28.7 % (41.0-53.0); Hemoglobin 9.7 g/dL (13.5-17.5); Lymphocytes # (auto) 0.9 10 ^3/uL (0.4-5.4); Lymphocytes % (auto) 11.1 % (10.0-50.0); Mean Corpuscular Hemoglobin 32.2 pg (28.0-32.0); Mean Corpuscular Hgb Conc. 33.9 g/dL (32.0-36.0); Mean Corpuscular Volume 94.9 fL (80.0-100.0); Monocytes # (auto) 0.8 10 ^3/uL (0-1.3); Monocytes % (auto) 9.2 % (0.0-12.0); Neutrophils # (auto) 6.6 10 ^3/uL (1.6-8.6); Neutrophils % (auto) 77.6 % (37.0-80.0); Red Blood Cells 3.02 10^6/uL (4.5-5.90); Red Cell Distribution Width 16.4 % (11.8-14.3); White Blood Cell 8.5 10^3/uL (4.4-10.8)
[2022-06-10 05:39] LABS: BUN/Creatinine Ratio 6.4; Calcium 8.6 mg/dL (8.5-10.1)
[2022-06-10] MEDS: NITROGLYCERIN 0.4MG/HR TOPICAL PATCH TD SCH (09:33)
[2022-06-10] MEDS: LISINOPRIL 10 MG TAB PO SCH ×2 (09:33→09:41)
[2022-06-10] MEDS: METOPROLOL TARTRATE 25 MG TAB PO SCH ×2 (09:33→09:41)
[2022-06-10] MEDS: ASPirin-EC 81 mg tab PO SCH (09:33)
[2022-06-10] MEDS ORDERED: ENOXAPARIN SOD 80 MG/0.8ML SYRINGE SC SCH (10:00)
[2022-06-10] MEDS ORDERED: SODIUM CHL 0.9% 1000 ML BAG XX ONE (11:30)
[2022-06-10] MEDS: NIFEdipine ER 30 MG TAB PO SCH (12:30)
[2022-06-10] MEDS ORDERED: LIDOCAINE 2%HCL (LOCAL ANESTH.) INJ 10ml MDV ONE (17:57)
[2022-06-10] MEDS ORDERED: IODIXANOL 320MG/ML 100ML BTL IV ONE ×2 (17:57→18:30)
[2022-06-10] MEDS ORDERED: ANGIOMAX 250 MG VIAL IV ONE (17:58)
[2022-06-10] MEDS ORDERED: fentaNYL CITRATE 100 MCG/2 ML VL ONE (17:58)
[2022-06-10] MEDS ORDERED: MIDAZOLAM HCL 2MG/2ML 2ml VIAL (1mg/ml) ONE (17:59)
[2022-06-10] MEDS ORDERED: SODIUM CHL 0.9% 50 ML ONE (17:59)
[2022-06-10] MEDS ORDERED: METOPROLOL TARTRATE 1MG/1ML-5ML VIAL IV ONE (18:14)
[2022-06-10] MEDS ORDERED: hydrALAZINE HCL 20 MG/ML VL ONE (18:38)
[2022-06-10] MEDS ORDERED: TICAGRELOR 90 MG TAB ONE (18:46)
[2022-06-10] MEDS ORDERED: cloNIDine HCL 0.1 MG TAB PO ONE (19:00)
[2022-06-10] MEDS ORDERED: cloNIDine HCL 0.1 MG TAB PO PRN (19:15)
[2022-06-10] MEDS ORDERED: EPOETIN ALFA-EPBX 10,000 UNIT/1ML VIAL SC ONE (21:00)
[2022-06-10] MEDS ORDERED: METOPROLOL TARTRATE 25 MG TAB PO SCH (22:00)
[2022-06-10] MEDS ORDERED: NIFE1TAB31 PO (22:26)
[2022-06-11] VITALS (7 sets, daily range): BP systolic 120–164; BP diastolic 1–84
[2022-06-11] MEDS: MORPHINE SULFATE INJ 2 MG/ml SYRG IV PRN ×3 (01:58→17:38)
[2022-06-11] MEDS: HYDROcodone-ACET 5/325MG TAB PO PRN ×2 (04:38→13:17)
[2022-06-11 06:16] LABS: Basophils # (auto) 0 10 ^3/uL (0-0.2); Basophils % (auto) 0.8 % (0.0-2.0); Eosinophils # (auto) 0.1 10 ^3/uL (0-0.8); Eosinophils % (auto) 1.2 % (0.0-7.0); Hematocrit 25.8 % (41.0-53.0); Hemoglobin 8.5 g/dL (13.5-17.5); Lymphocytes # (auto) 0.5 10 ^3/uL (0.4-5.4); Lymphocytes % (auto) 8.5 % (10.0-50.0); Mean Corpuscular Hemoglobin 31.3 pg (28.0-32.0); Mean Corpuscular Hgb Conc. 32.7 g/dL (32.0-36.0); Mean Corpuscular Volume 95.6 fL (80.0-100.0); Monocytes # (auto) 0.6 10 ^3/uL (0-1.3); Monocytes % (auto) 9.2 % (0.0-12.0); Neutrophils # (auto) 4.9 10 ^3/uL (1.6-8.6); Neutrophils % (auto) 80.3 % (37.0-80.0); Nucleated Red Blood Cells % 0.1 %; Red Cell Distribution Width 16.3 % (11.8-14.3); White Blood Cell 6.1 10^3/uL (4.4-10.8)
[2022-06-11 06:32] LABS: Potassium 4.8 mmol/L (3.5-5.1)
[2022-06-11 06:38] LABS: BUN/Creatinine Ratio 6.2; Calcium 8.5 mg/dL (8.5-10.1)
[2022-06-11] MEDS: ASPirin-EC 81 mg tab PO SCH (09:39)
[2022-06-11] MEDS: NIFEdipine ER 30 MG TAB PO SCH (09:40)
[2022-06-11] MEDS: LISINOPRIL 10 MG TAB PO SCH (09:41)
[2022-06-11] MEDS: NITROGLYCERIN 0.4MG/HR TOPICAL PATCH TD SCH (09:42)
[2022-06-11] MEDS ORDERED: METOPROLOL TARTRATE 50 MG TAB PO SCH (10:00)
[2022-06-11] MEDS ORDERED: TICAGRELOR 90 MG TAB PO SCH (10:00)
[2022-06-11] MEDS ORDERED: LOSARTAN POTASSIUM 50 MG TAB PO SCH (10:00)
[2022-06-11] MEDS ORDERED: TICA90TA PO (11:39)
[2022-06-11] MEDS ORDERED: ATORVASTATIN 20 MG TAB PO SCH (22:00)
== END 2022-06-11 18:35 | disposition home or self-care (01) | DRG 174 ==
LOC: ER 12:14 → EDBD 12:14 → TELE 16:53 → TELE-EAST 06-10 20:00
PROVIDERS: ADMIT Nurse Practitioner Acute Care; ATTEND Nurse Practitioner Acute Care
PROC: 027035Z Dilation of Coronary Artery, One Artery with Two Drug-eluting Intraluminal Devices, Percutaneous Approach (ICD-10-PCS; principal; 2022-06-10)
PROC: B213YZZ Fluoroscopy of Multiple Coronary Artery Bypass Grafts using Other Contrast (ICD-10-PCS; 2022-06-10)
PROC: 4A023N7 Measurement of Cardiac Sampling and Pressure, Left Heart, Percutaneous Approach (ICD-10-PCS; 2022-06-10)
PROC: B218YZZ Fluoroscopy of Left Internal Mammary Bypass Graft using Other Contrast (ICD-10-PCS; 2022-06-10)
PROC: B215YZZ Fluoroscopy of Left Heart using Other Contrast (ICD-10-PCS; 2022-06-10)
PROC: 5A1D70Z Performance of Urinary Filtration, Intermittent, Less than 6 Hours Per Day (ICD-10-PCS; 2022-06-10)
DX: I21.4 Non-ST elevation (NSTEMI) myocardial infarction (principal); I12.0 Hypertensive chronic kidney disease with stage 5 chronic kidney disease or end stage renal disease; E11.22 Type 2 diabetes mellitus with diabetic chronic kidney disease; D63.1 Anemia in chronic kidney disease; L97.509 Non-pressure chronic ulcer of other part of unspecified foot with unspecified severity; N18.6 End stage renal disease; Z20.822 Contact with and (suspected) exposure to COVID-19; M89.8X9 Other specified disorders of bone, unspecified site; E11.621 Type 2 diabetes mellitus with foot ulcer; E78.5 Hyperlipidemia, unspecified; I16.1 Hypertensive emergency; I25.10 Atherosclerotic heart disease of native coronary artery without angina pectoris; Z86.73 Personal history of transient ischemic attack (TIA), and cerebral infarction without residual deficits; Z99.2 Dependence on renal dialysis; Z79.02 Long term (current) use of antithrombotics/antiplatelets; Z80.0 Family history of malignant neoplasm of digestive organs
CPT/HCPCS: 36415; 71045; 80048; 80053; 84484; 85025; 87426; 90935; 93005; 93306; 93926; 96374; 99152; 99153; 99291; C1874; G0378; J1642; J2001; J2250; J2405; J3490; Q9967

== ENCOUNTER 2022-06-12 12:38 | Inpatient (IN) | payer MEDICAID ==
[~2022-06-12] VITALS: Ht 177.8 cm; Wt 78.0 kg
[~2022-06-12 12:38] MED LIST: NIFE1TAB31 PO; TICA90TA PO
[2022-06-12] MEDS ORDERED: SODIUM CHLORIDE 0.9% 1,000 ML IV ONE (13:45)
[2022-06-12 13:55] LABS: Basophils # (auto) 0.1 10 ^3/uL (0-0.2); Eosinophils # (auto) 0.1 10 ^3/uL (0-0.8); Hematocrit 22.6 % (41.0-53.0); Mean Corpuscular Volume 93.4 fL (80.0-100.0); Monocytes # (auto) 0.6 10 ^3/uL (0-1.3); Neutrophils # (auto) 4.5 10 ^3/uL (1.6-8.6); Red Blood Cells 2.42 10^6/uL (4.5-5.90); White Blood Cell 5.6 10^3/uL (4.4-10.8)
[2022-06-12 13:56] LABS: Basophils % (auto) 1.3 % (0.0-2.0); Eosinophils % (auto) 1.1 % (0.0-7.0); Hemoglobin 7.9 g/dL (13.5-17.5); Lymphocytes # (auto) 0.3 10 ^3/uL (0.4-5.4); Lymphocytes % (auto) 6.2 % (10.0-50.0); Mean Corpuscular Hemoglobin 32.5 pg (28.0-32.0); Mean Corpuscular Hgb Conc. 34.8 g/dL (32.0-36.0); Monocytes % (auto) 10.2 % (0.0-12.0); Neutrophils % (auto) 81.2 % (37.0-80.0)
[2022-06-12 14:12] LABS: BUN/Creatinine Ratio 5.3; Calcium 8.2 mg/dL (8.5-10.1); Potassium 3.6 mmol/L (3.5-5.1)
[2022-06-12 14:15] LABS: Partial Thromboplastin Time 32.8 sec (24.6-33.4)
[2022-06-12] MEDS ORDERED: LIDOCAINE 2%HCL (LOCAL ANESTH.) INJ 10ml MDV ONE (14:24)
[2022-06-12] MEDS ORDERED: ONDANSETRON HCL 4 MG/2 ML VIAL IV ONE (15:00)
[2022-06-12] MEDS ORDERED: HYDROmorphone HCL 2 MG/ML VL/or syr IV ONE (15:00)
[2022-06-12] MEDS ORDERED: LIDOCAINE 2%HCL (LOCAL ANESTH.) INJ 10ml MDV IJ ONE (17:00)
[2022-06-12] MEDS ORDERED: ACETAMINOPHEN 325 MG TAB PO PRN (18:15)
[2022-06-12] MEDS ORDERED: LORATADINE 10 MG TAB PO ONE (18:30)
[2022-06-12] MEDS ORDERED: ACETAMINOPHEN 325 MG TAB PO ONE (18:30)
[2022-06-12] MEDS ORDERED: FAMOTIDINE INJECTION 40 MG in SODIUM CHL 0.9% 100 ML IV SCH (18:42)
[2022-06-12] MEDS ORDERED: FAMOTIDINE 20 MG TAB PO ONE (21:15)
[2022-06-12] MEDS: HYDROmorphone HCL 2 MG/ML VL/or syr IV PRN (21:15)
[2022-06-12 21:37] VITALS: BP 132/72
[2022-06-12 21:52] VITALS: BP 146/73
[2022-06-12] MEDS: SODIUM CHLOR 0.9% PF (SALINE LOCK) 10ML VIAL/SYR IV SCH (22:00)
[2022-06-13 01:15] VITALS: BP 156/80
[2022-06-13 02:13] LABS: Basophils # (auto) 0.1 10 ^3/uL (0-0.2); Eosinophils # (auto) 0.1 10 ^3/uL (0-0.8); Hemoglobin 8.2 g/dL (13.5-17.5); Lymphocytes # (auto) 0.6 10 ^3/uL (0.4-5.4); Mean Corpuscular Hgb Conc. 34.8 g/dL (32.0-36.0); Monocytes # (auto) 0.7 10 ^3/uL (0-1.3); Red Cell Distribution Width 16.6 % (11.8-14.3)
[2022-06-13 02:15] LABS: Basophils % (auto) 1.1 % (0.0-2.0); Eosinophils % (auto) 1.5 % (0.0-7.0); Hematocrit 23.6 % (41.0-53.0); Lymphocytes % (auto) 10.4 % (10.0-50.0); Mean Corpuscular Hemoglobin 31.9 pg (28.0-32.0); Mean Corpuscular Volume 91.6 fL (80.0-100.0); Monocytes % (auto) 12.5 % (0.0-12.0); Neutrophils # (auto) 4.4 10 ^3/uL (1.6-8.6); Neutrophils % (auto) 74.5 % (37.0-80.0); Red Blood Cells 2.58 10^6/uL (4.5-5.90); White Blood Cell 5.9 10^3/uL (4.4-10.8)
[2022-06-13] MEDS: HYDROcodone-ACET 5/325MG TAB PO PRN ×2 (02:30→07:45)
[2022-06-13] MEDS: HYDROmorphone HCL 2 MG/ML VL/or syr IV PRN ×4 (04:54→22:51)
[2022-06-13] MEDS: SODIUM CHLOR 0.9% PF (SALINE LOCK) 10ML VIAL/SYR IV SCH ×3 (06:18→22:51)
[2022-06-13 06:52] LABS: Basophils # (auto) 0.1 10 ^3/uL (0-0.2); Basophils % (auto) 1.1 % (0.0-2.0); Eosinophils # (auto) 0.1 10 ^3/uL (0-0.8); Eosinophils % (auto) 1.9 % (0.0-7.0); Hematocrit 24.8 % (41.0-53.0); Hemoglobin 8.7 g/dL (13.5-17.5); Lymphocytes # (auto) 0.5 10 ^3/uL (0.4-5.4); Lymphocytes % (auto) 10.4 % (10.0-50.0); Mean Corpuscular Hemoglobin 32.2 pg (28.0-32.0); Mean Corpuscular Volume 91.9 fL (80.0-100.0); Monocytes # (auto) 0.6 10 ^3/uL (0-1.3); Monocytes % (auto) 11.6 % (0.0-12.0); Neutrophils # (auto) 3.8 10 ^3/uL (1.6-8.6); Red Cell Distribution Width 16.5 % (11.8-14.3); White Blood Cell 5.1 10^3/uL (4.4-10.8)
[2022-06-13] MEDS: ONDANSETRON HCL 4 MG/2 ML VIAL IV PRN (11:50)
[2022-06-13 14:16] LABS: Basophils # (auto) 0.1 10 ^3/uL (0-0.2); Basophils % (auto) 1.4 % (0.0-2.0); Eosinophils # (auto) 0.1 10 ^3/uL (0-0.8); Eosinophils % (auto) 1.7 % (0.0-7.0); Hemoglobin 8.7 g/dL (13.5-17.5); Lymphocytes # (auto) 0.4 10 ^3/uL (0.4-5.4); Lymphocytes % (auto) 7.4 % (10.0-50.0); Mean Corpuscular Hemoglobin 33.5 pg (28.0-32.0); Mean Corpuscular Hgb Conc. 36.1 g/dL (32.0-36.0); Monocytes # (auto) 0.6 10 ^3/uL (0-1.3); Monocytes % (auto) 10.4 % (0.0-12.0); Neutrophils # (auto) 4.3 10 ^3/uL (1.6-8.6); Neutrophils % (auto) 79.1 % (37.0-80.0); Nucleated Red Blood Cells % 0.2 %; Red Blood Cells 2.59 10^6/uL (4.5-5.90); Red Cell Distribution Width 16.8 % (11.8-14.3); White Blood Cell 5.5 10^3/uL (4.4-10.8)
[2022-06-13] MEDS: METOPROLOL TARTRATE 1MG/1ML-5ML VIAL IV PRN (21:04)
[2022-06-13 22:27] LABS: Basophils # (auto) 0.1 10 ^3/uL (0-0.2); Basophils % (auto) 0.9 % (0.0-2.0); Eosinophils # (auto) 0.1 10 ^3/uL (0-0.8); Hematocrit 23.8 % (41.0-53.0); Hemoglobin 8.5 g/dL (13.5-17.5); Lymphocytes # (auto) 0.6 10 ^3/uL (0.4-5.4); Lymphocytes % (auto) 9.8 % (10.0-50.0); Mean Corpuscular Hemoglobin 32.9 pg (28.0-32.0); Mean Corpuscular Hgb Conc. 35.6 g/dL (32.0-36.0); Mean Corpuscular Volume 92.3 fL (80.0-100.0); Monocytes # (auto) 0.6 10 ^3/uL (0-1.3); Monocytes % (auto) 9.5 % (0.0-12.0); Neutrophils # (auto) 5.1 10 ^3/uL (1.6-8.6); Neutrophils % (auto) 77.8 % (37.0-80.0); Red Blood Cells 2.58 10^6/uL (4.5-5.90); White Blood Cell 6.5 10^3/uL (4.4-10.8)
[2022-06-14] MEDS: METOPROLOL TARTRATE 1MG/1ML-5ML VIAL IV PRN ×2 (00:34→02:20)
[2022-06-14] MEDS: ONDANSETRON HCL 4 MG/2 ML VIAL IV PRN ×2 (02:23→09:05)
[2022-06-14] MEDS: HYDROmorphone HCL 2 MG/ML VL/or syr IV PRN ×3 (02:23→20:00)
[2022-06-14] MEDS: SODIUM CHLOR 0.9% PF (SALINE LOCK) 10ML VIAL/SYR IV SCH ×3 (06:00→22:00)
[2022-06-14] MEDS: HYDROcodone-ACET 5/325MG TAB PO PRN ×2 (06:11→13:53)
[2022-06-14 07:50] LABS: BUN/Creatinine Ratio 6.4; Calcium 8.4 mg/dL (8.5-10.1); Potassium 5.5 mmol/L (3.5-5.1)
[2022-06-14] MEDS: ASPirin 81 mg TAB PO SCH (09:35)
[2022-06-14] MEDS: TICAGRELOR 90 MG TAB PO SCH ×2 (09:35→21:10)
[2022-06-14] MEDS: hydrALAZINE HCL 25 MG TAB PO SCH ×3 (10:31→18:38)
[2022-06-14] MEDS: ENALAPRILAT 1.25 MG/ML-1ML VIAL IV PRN ×2 (12:22→20:00)
[2022-06-14] MEDS: ATORVASTATIN 20 MG TAB PO SCH (21:10)
[2022-06-14] MEDS: CARVEDILOL 3.125 MG TAB PO SCH (21:11)
[2022-06-14 22:00] VITALS: BP 188/87
[2022-06-15] VITALS (8 sets, daily range): BP systolic 159–199; BP diastolic 67–99
[2022-06-15] MEDS: hydrALAZINE HCL 25 MG TAB PO SCH ×5 (00:35→23:35)
[2022-06-15] MEDS: HYDROmorphone HCL 2 MG/ML VL/or syr IV PRN ×4 (00:36→21:12)
[2022-06-15] MEDS: ENALAPRILAT 1.25 MG/ML-1ML VIAL IV PRN ×2 (03:17→14:44)
[2022-06-15] MEDS: SODIUM CHLOR 0.9% PF (SALINE LOCK) 10ML VIAL/SYR IV SCH ×3 (06:19→22:00)
[2022-06-15] MEDS ORDERED: SODIUM CHL 0.9% 1000 ML BAG XX ONE (09:15)
[2022-06-15] MEDS: ASPirin 81 mg TAB PO SCH (09:25)
[2022-06-15] MEDS: TICAGRELOR 90 MG TAB PO SCH ×2 (09:25→21:09)
[2022-06-15] MEDS: CARVEDILOL 3.125 MG TAB PO SCH ×2 (09:26→21:11)
[2022-06-15] MEDS: LOSARTAN POTASSIUM 50 MG TAB PO SCH (09:26)
[2022-06-15] MEDS: HYDROcodone-ACET 5/325MG TAB PO PRN ×2 (10:15→18:30)
[2022-06-15 10:58] LABS: Basophils # (auto) 0.1 10 ^3/uL (0-0.2); Eosinophils # (auto) 0.1 10 ^3/uL (0-0.8); Hematocrit 25.1 % (41.0-53.0); Lymphocytes # (auto) 0.5 10 ^3/uL (0.4-5.4); Lymphocytes % (auto) 6.3 % (10.0-50.0); Mean Corpuscular Hemoglobin 31.5 pg (28.0-32.0); Mean Corpuscular Hgb Conc. 31.8 g/dL (32.0-36.0); Mean Corpuscular Volume 99.1 fL (80.0-100.0); Monocytes # (auto) 0.7 10 ^3/uL (0-1.3); Monocytes % (auto) 10.3 % (0.0-12.0); Neutrophils # (auto) 5.8 10 ^3/uL (1.6-8.6); Neutrophils % (auto) 80.4 % (37.0-80.0); Red Blood Cells 2.53 10^6/uL (4.5-5.90); White Blood Cell 7.2 10^3/uL (4.4-10.8)
[2022-06-15] MEDS: cloNIDine HCL 0.1 MG TAB PO PRN (16:21)
[2022-06-15] MEDS: NITROGLYCERIN 0.4 MG SL TAB SL PRN ×2 (16:37→16:52)
[2022-06-15] MEDS ORDERED: LABETALOL HCL 5 MG/ML 4ML SYRINGE IV PRN (17:15)
[2022-06-15] MEDS: DOCUSATE SOD 100 MG CAP PO PRN (18:30)
[2022-06-15] MEDS ORDERED: EPOETIN ALFA-EPBX 10,000 UNIT/1ML VIAL SC ONE (21:00)
[2022-06-15] MEDS: ATORVASTATIN 20 MG TAB PO SCH (21:09)
[2022-06-16] VITALS (7 sets, daily range): BP systolic 132–163; BP diastolic 65–88
[2022-06-16] MEDS: HYDROmorphone HCL 2 MG/ML VL/or syr IV PRN ×3 (03:25→15:19)
[2022-06-16] MEDS: cloNIDine HCL 0.1 MG TAB PO PRN (03:25)
[2022-06-16] MEDS: SODIUM CHLOR 0.9% PF (SALINE LOCK) 10ML VIAL/SYR IV SCH ×2 (06:17→18:46)
[2022-06-16] MEDS: hydrALAZINE HCL 25 MG TAB PO SCH ×3 (06:30→17:56)
[2022-06-16] MEDS: ASPirin 81 mg TAB PO SCH (09:10)
[2022-06-16] MEDS: TICAGRELOR 90 MG TAB PO SCH (09:10)
[2022-06-16] MEDS: CARVEDILOL 3.125 MG TAB PO SCH (09:11)
[2022-06-16] MEDS: LOSARTAN POTASSIUM 50 MG TAB PO SCH (09:11)
[2022-06-16] MEDS: DOCUSATE SOD 100 MG CAP PO PRN (09:25)
[2022-06-16] MEDS ORDERED: ISOSORBIDE MONONITRATE ER 60 MG TAB PO SCH (10:00)
[2022-06-16] MEDS: HYDROcodone-ACET 5/325MG TAB PO PRN ×2 (12:00→18:00)
[2022-06-16] MEDS ORDERED: CLON0.1T PO (15:18)
[2022-06-16] MEDS ORDERED: ISO60SRT PO (15:18)
[2022-06-17] MEDS ORDERED: SODIUM CHL 0.9% 1000 ML BAG XX ONE (07:00)
[2022-06-17] MEDS ORDERED: EPOETIN ALFA-EPBX 4,000 UNIT/ML VIAL SC ONE (21:00)
== END 2022-06-16 19:00 | disposition home or self-care (01) | DRG 197 ==
LOC: ER 12:38 → OVERFLOW 18:13 → TELE-CENTR 06-14 16:50
PROVIDERS: ADMIT Internal Medicine; ATTEND Nurse Practitioner Acute Care
PROC: 3E053GC Introduction of Other Therapeutic Substance into Peripheral Artery, Percutaneous Approach (ICD-10-PCS; principal; 2022-06-12)
PROC: 30233N1 Transfusion of Nonautologous Red Blood Cells into Peripheral Vein, Percutaneous Approach (ICD-10-PCS; 2022-06-12)
PROC: 5A1D70Z Performance of Urinary Filtration, Intermittent, Less than 6 Hours Per Day (ICD-10-PCS; 2022-06-15)
DX: T81.718A Complication of other artery following a procedure, not elsewhere classified, initial encounter (principal); I13.2 Hypertensive heart and chronic kidney disease with heart failure and with stage 5 chronic kidney disease, or end stage renal disease; N18.6 End stage renal disease; L97.922 Non-pressure chronic ulcer of unspecified part of left lower leg with fat layer exposed; D63.1 Anemia in chronic kidney disease; E11.22 Type 2 diabetes mellitus with diabetic chronic kidney disease; D50.0 Iron deficiency anemia secondary to blood loss (chronic); E78.5 Hyperlipidemia, unspecified; E87.5 Hyperkalemia; I25.10 Atherosclerotic heart disease of native coronary artery without angina pectoris; I50.22 Chronic systolic (congestive) heart failure; I72.4 Aneurysm of artery of lower extremity; S91.302A Unspecified open wound, left foot, initial encounter; X58.XXXA Exposure to other specified factors, initial encounter; I16.0 Hypertensive urgency; Z20.822 Contact with and (suspected) exposure to COVID-19; M89.8X9 Other specified disorders of bone, unspecified site; Z95.1 Presence of aortocoronary bypass graft; Y84.0 Cardiac catheterization as the cause of abnormal reaction of the patient, or of later complication, without mention of misadventure at the time of the procedure; Z99.2 Dependence on renal dialysis; Z79.899 Other long term (current) drug therapy; Z79.82 Long term (current) use of aspirin; I25.2 Old myocardial infarction; Z80.0 Family history of malignant neoplasm of digestive organs; Z86.73 Personal history of transient ischemic attack (TIA), and cerebral infarction without residual deficits; Z95.5 Presence of coronary angioplasty implant and graft; Y93.89 Activity, other specified; Y92.89 Other specified places as the place of occurrence of the external cause; Y99.8 Other external cause status
CPT/HCPCS: 36415; 80048; 83735; 85025; 85610; 85730; 86850; 86900; 86901; 86920; 87340; 87426; 90935; 93005; 93926; 96361; 96374; 96375; G0378; J2001; J2405; J3490

== ENCOUNTER 2022-10-25 09:19 | Emergency (ER) | payer MEDICAID ==
[~2022-10-25] VITALS: Ht 177.8 cm; Wt 69.2 kg
[~2022-10-25 09:19] MED LIST changes: +CLON0.1T PO; +ISO60SRT PO
[2022-10-25 10:30] LABS: Basophils # (auto) 0 10 ^3/uL (0-0.2); Basophils % (auto) 0.7 % (0.0-2.0); Eosinophils # (auto) 0.1 10 ^3/uL (0-0.8); Eosinophils % (auto) 0.9 % (0.0-7.0); Hematocrit 38.3 % (41.0-53.0); Hemoglobin 12.6 g/dL (13.5-17.5); Lymphocytes # (auto) 0.4 10 ^3/uL (0.4-5.4); Lymphocytes % (auto) 5.1 % (10.0-50.0); Mean Corpuscular Hemoglobin 31.2 pg (28.0-32.0); Mean Corpuscular Hgb Conc. 32.9 g/dL (32.0-36.0); Mean Corpuscular Volume 94.9 fL (80.0-100.0); Monocytes # (auto) 0.4 10 ^3/uL (0-1.3); Neutrophils % (auto) 87.3 % (37.0-80.0); Red Blood Cells 4.03 10^6/uL (4.5-5.90); Red Cell Distribution Width 16.5 % (11.8-14.3); White Blood Cell 6.9 10^3/uL (4.4-10.8)
[2022-10-25 11:13] LABS: Albumin 3.5 g/dL (3.4-5.0); BUN/Creatinine Ratio 4.6 (10.0-20.0); Bilirubin, Total 0.5 mg/dL (0.2-1.0); Calcium 8.6 mg/dL (8.5-10.1); Total Protein 6.7 g/dL (6.4-8.2)
[2022-10-25] MEDS ORDERED: DONNATAL 5ml ORAL Elix (BELLADONNA ALK-PHENOBARB) PO ONE (13:00)
[2022-10-25] MEDS ORDERED: ONDANSETRON ODT 4 MG TAB PO ONE (13:00)
[2022-10-25] MEDS ORDERED: MAALOX PLUS or MAALOX 30 ML PO ONE (13:00)
[2022-10-25] MEDS ORDERED: FAMOTIDINE 20 MG TAB PO ONE (13:00)
[2022-10-25 14:42] VITALS: BP 103/64
== END 2022-10-25 14:47 | disposition home or self-care (01) ==
LOC: ER 09:19
DX: K52.9 Noninfective gastroenteritis and colitis, unspecified (principal); I12.0 Hypertensive chronic kidney disease with stage 5 chronic kidney disease or end stage renal disease; E11.22 Type 2 diabetes mellitus with diabetic chronic kidney disease; N18.6 End stage renal disease; Z99.2 Dependence on renal dialysis; I25.2 Old myocardial infarction; Z79.899 Other long term (current) drug therapy
CPT/HCPCS: 36415; 80053; 85025; 99284; Q0162

== ENCOUNTER 2022-11-17 01:31 | Inpatient (IN) | payer MEDICAID ==
[~2022-11-17] VITALS: Ht 177.8 cm; Wt 74.8 kg
[2022-11-17 02:18] LABS: Basophils # (auto) 0 10 ^3/uL (0-0.2); Basophils % (auto) 0.9 % (0.0-2.0); Eosinophils # (auto) 0.1 10 ^3/uL (0-0.8); Eosinophils % (auto) 1.6 % (0.0-7.0); Hematocrit 36.5 % (41.0-53.0); Hemoglobin 12.3 g/dL (13.5-17.5); Lymphocytes # (auto) 0.8 10 ^3/uL (0.4-5.4); Lymphocytes % (auto) 15.5 % (10.0-50.0); Mean Corpuscular Hemoglobin 32.1 pg (28.0-32.0); Mean Corpuscular Hgb Conc. 33.7 g/dL (32.0-36.0); Mean Corpuscular Volume 95.4 fL (80.0-100.0); Monocytes # (auto) 0.7 10 ^3/uL (0-1.3); Monocytes % (auto) 12.2 % (0.0-12.0); Neutrophils # (auto) 3.8 10 ^3/uL (1.6-8.6); Neutrophils % (auto) 69.8 % (37.0-80.0); Nucleated Red Blood Cells % 0.1 %; Red Blood Cells 3.83 10^6/uL (4.5-5.90); Red Cell Distribution Width 16.1 % (11.8-14.3); White Blood Cell 5.5 10^3/uL (4.4-10.8)
[2022-11-17 02:25] LABS: Albumin 3.2 g/dL (3.4-5.0); BUN/Creatinine Ratio 5.4 (10.0-20.0); Calcium 7.5 mg/dL (8.5-10.1); Magnesium 2.8 mg/dL (1.6-2.6)
[2022-11-17 02:26] LABS: INR 0.97 (0.9-1.15); Partial Thromboplastin Time 30.3 sec (24.6-33.4)
[2022-11-17 02:28] LABS: Bilirubin, Total 0.4 mg/dL (0.2-1.0); Total Protein 6.6 g/dL (6.4-8.2)
[2022-11-17] MEDS ORDERED: ONDANSETRON HCL 4 MG/2 ML VIAL IV ONE (02:30)
[2022-11-17] MEDS ORDERED: MORPHINE SULFATE 4 MG/ML SYR/VIAL IV ONE (02:30)
[2022-11-17] MEDS ORDERED: HEPARIN SODIUM (PORCINE) 5000 UNITS/ML 1ML VIAL IV ONE (07:00)
[2022-11-17] MEDS ORDERED: HEPARIN DRIP/D5W 100UNITS/ML 250 ML IV SCH (07:00)
[2022-11-17] MEDS ORDERED: ACETAMINOPHEN 325 MG TAB PO PRN (07:15)
[2022-11-17] MEDS: TICAGRELOR 90 MG TAB PO SCH ×2 (11:11→22:59)
[2022-11-17] MEDS: ISOSORBIDE MONONITRATE ER 60 MG TAB PO SCH (11:12)
[2022-11-17] MEDS: CARVEDILOL 3.125 MG TAB PO SCH ×2 (11:12→22:00)
[2022-11-17] MEDS: PANTOPRAZOLE 40 MG TAB PO SCH (11:12)
[2022-11-17 15:25] LABS: INR 1.04 (0.9-1.15)
[2022-11-17 15:53] LABS: Partial Thromboplastin Time 123.4 sec (24.6-33.4)
[2022-11-17] MEDS: HEPARIN DRIP/D5W 100UNITS/ML 250 ML IV SCH (17:30)
[2022-11-17] MEDS: cloNIDine HCL 0.1 MG TAB PO PRN (19:32)
[2022-11-17] MEDS: hydrALAZINE HCL 20 MG/ML VL IV PRN (23:16)
[2022-11-17 23:50] LABS: INR 0.99 (0.9-1.15); Partial Thromboplastin Time 35.2 sec (24.6-33.4)
[2022-11-18] MEDS ORDERED: HEPARIN SODIUM (PORCINE) 5000 UNITS/ML 1ML VIAL IV NR (00:30)
[2022-11-18] MEDS: HEPARIN DRIP/D5W 100UNITS/ML 250 ML IV SCH ×5 (01:16→20:58)
[2022-11-18 06:02] LABS: Basophils # (auto) 0.1 10 ^3/uL (0-0.2); Basophils % (auto) 0.8 % (0.0-2.0); Eosinophils # (auto) 0.1 10 ^3/uL (0-0.8); Eosinophils % (auto) 1.8 % (0.0-7.0); Hematocrit 32.4 % (41.0-53.0); Hemoglobin 11.3 g/dL (13.5-17.5); Lymphocytes # (auto) 0.8 10 ^3/uL (0.4-5.4); Lymphocytes % (auto) 10.1 % (10.0-50.0); Mean Corpuscular Hemoglobin 33.7 pg (28.0-32.0); Mean Corpuscular Hgb Conc. 34.8 g/dL (32.0-36.0); Mean Corpuscular Volume 96.8 fL (80.0-100.0); Monocytes # (auto) 0.6 10 ^3/uL (0-1.3); Monocytes % (auto) 7.2 % (0.0-12.0); Neutrophils # (auto) 6.3 10 ^3/uL (1.6-8.6); Neutrophils % (auto) 80.1 % (37.0-80.0); Red Blood Cells 3.35 10^6/uL (4.5-5.90); Red Cell Distribution Width 15.8 % (11.8-14.3); White Blood Cell 7.8 10^3/uL (4.4-10.8)
[2022-11-18 06:11] LABS: BUN/Creatinine Ratio 6.1 (10.0-20.0); Bilirubin, Total 0.4 mg/dL (0.2-1.0); Calcium 7.8 mg/dL (8.5-10.1); Total Protein 5.8 g/dL (6.4-8.2)
[2022-11-18 06:28] LABS: Potassium 7.1 mmol/L (3.5-5.1)
[2022-11-18] MEDS ORDERED: InsuLIN REG 1unit/0.01ml Soln (100units/ml) IV ONE (07:00)
[2022-11-18] MEDS ORDERED: SODIUM BICARBONATE 8.4% INJ 50ML SYRINGE IV ONE (07:00)
[2022-11-18] MEDS ORDERED: CALCIUM GLUC 1,000mg/50ml-NS 50 ML IV ONE ×2 (07:00→08:45)
[2022-11-18] MEDS ORDERED: DEXTROSE (50%) 50ML SYRG IV ONE ×2 (07:00→08:45)
[2022-11-18] MEDS ORDERED: SODIUM ZIRCONIUM CYCL 10 GM PAK PO ONE (07:00)
[2022-11-18 08:47] LABS: INR 1.01 (0.9-1.15)
[2022-11-18 08:54] LABS: Partial Thromboplastin Time 90.1 sec (24.6-33.4)
[2022-11-18 09:15] VITALS: BP 186/70
[2022-11-18 10:00] VITALS: BP 186/70
[2022-11-18] MEDS: ISOSORBIDE MONONITRATE ER 60 MG TAB PO SCH (10:00)
[2022-11-18] MEDS: TICAGRELOR 90 MG TAB PO SCH ×2 (10:00→20:53)
[2022-11-18] MEDS: CARVEDILOL 3.125 MG TAB PO SCH ×2 (10:00→22:00)
[2022-11-18] MEDS: PANTOPRAZOLE 40 MG TAB PO SCH (10:00)
[2022-11-18] MEDS: hydrALAZINE HCL 20 MG/ML VL IV PRN ×2 (11:07→20:30)
[2022-11-18] MEDS: MORPHINE SULFATE INJ 2 MG/ml SYRG IV PRN ×2 (12:38→19:12)
[2022-11-18] MEDS: cloNIDine HCL 0.1 MG TAB PO PRN ×3 (12:38→23:41)
[2022-11-18 12:46] VITALS: BP 172/52
[2022-11-18] MEDS ORDERED: ASPI325T4 PO (13:27)
[2022-11-18 15:10] LABS: INR 0.98 (0.9-1.15)
[2022-11-18 16:27] VITALS: BP 178/97
[2022-11-18] MEDS ORDERED: LACTULOSE 20Gm/30ML SOLN PO PRN (16:45)
[2022-11-18 21:51] VITALS: BP 179/85
[2022-11-18 22:02] LABS: INR 1.03 (0.9-1.15); Partial Thromboplastin Time 41.1 sec (24.6-33.4)
[2022-11-19] VITALS (33 sets, daily range): BP systolic 123–185; BP diastolic 40–79
[2022-11-19] MEDS ORDERED: HEPARIN DRIP/D5W 100UNITS/ML 250 ML IV SCH (05:00)
[2022-11-19] MEDS: hydrALAZINE HCL 20 MG/ML VL IV PRN (05:03)
[2022-11-19] MEDS: cloNIDine HCL 0.1 MG TAB PO PRN (06:00)
[2022-11-19] MEDS: ONDANSETRON HCL 4 MG/2 ML VIAL IV PRN (06:29)
[2022-11-19] MEDS: MORPHINE SULFATE INJ 2 MG/ml SYRG IV PRN (06:30)
[2022-11-19] MEDS: TICAGRELOR 90 MG TAB PO SCH ×2 (09:34→21:50)
[2022-11-19] MEDS: LOSARTAN POTASSIUM 50 MG TAB PO SCH (09:35)
[2022-11-19] MEDS: CARVEDILOL 3.125 MG TAB PO SCH ×2 (09:35→21:15)
[2022-11-19] MEDS: PANTOPRAZOLE 40 MG TAB PO SCH (09:35)
[2022-11-19] MEDS: ISOSORBIDE MONONITRATE ER 60 MG TAB PO SCH (09:35)
[2022-11-19 11:38] LABS: INR 1.03 (0.9-1.15)
[2022-11-19] MEDS ORDERED: LIDOCAINE 2%HCL (LOCAL ANESTH.) INJ 20ML MDV ONE (14:13)
[2022-11-19] MEDS ORDERED: IODIXANOL 320MG/ML 100ML BTL IV ONE ×3 (14:14→16:20)
[2022-11-19] MEDS ORDERED: fentaNYL CITRATE 100 MCG/2 ML VL ONE (15:25)
[2022-11-19] MEDS ORDERED: ANGIOMAX 250 MG VIAL IV ONE (15:25)
[2022-11-19] MEDS ORDERED: SODIUM CHL 0.9% 50 ML ONE (15:26)
[2022-11-19] MEDS ORDERED: MIDAZOLAM HCL 2MG/2ML 2ml VIAL (1mg/ml) ONE (15:26)
[2022-11-19] MEDS ORDERED: hydrALAZINE HCL 20 MG/ML VL ONE ×2 (15:47→16:09)
[2022-11-19] MEDS ORDERED: TICAGRELOR 90 MG TAB ONE (16:26)
[2022-11-19] MEDS: NITROGLYCERIN 0.4 MG SL TAB SL PRN ×2 (16:45→16:53)
[2022-11-19] MEDS ORDERED: HYDROmorphone HCL 2 MG/ML VL/or syr IV PRN (17:00)
[2022-11-19] MEDS ORDERED: NITROGLYCERIN 50MG/250ML 250 ML IV SCH (17:00)
[2022-11-19] MEDS ORDERED: NITROGLYCERIN 50MG/250ML 250 ML IV ONE (17:16)
[2022-11-19] MEDS: HYDROmorphone HCL 2 MG/ML VL/or syr IV PRN (17:26)
[2022-11-19] MEDS: NITROGLYCERIN 50MG/250ML 250 ML IV SCH (17:30)
[2022-11-19] MEDS: MELATONIN 5 MG TAB PO SCH (21:50)
[2022-11-20] VITALS (93 sets, daily range): BP systolic 116–197; BP diastolic 32–100
[2022-11-20] MEDS: hydrALAZINE HCL 20 MG/ML VL IV PRN ×2 (00:03→06:22)
[2022-11-20] MEDS: HYDROmorphone HCL 2 MG/ML VL/or syr IV PRN ×2 (00:28→21:16)
[2022-11-20] MEDS: ONDANSETRON HCL 4 MG/2 ML VIAL IV PRN ×3 (00:30→21:16)
[2022-11-20] MEDS: MORPHINE SULFATE INJ 2 MG/ml SYRG IV PRN ×2 (02:12→12:21)
[2022-11-20 05:04] LABS: Basophils # (auto) 0 10 ^3/uL (0-0.2); Basophils % (auto) 0.3 % (0.0-2.0); Eosinophils # (auto) 0 10 ^3/uL (0-0.8); Eosinophils % (auto) 0.2 % (0.0-7.0); Hematocrit 36.6 % (41.0-53.0); Hemoglobin 12.4 g/dL (13.5-17.5); Lymphocytes # (auto) 0.4 10 ^3/uL (0.4-5.4); Lymphocytes % (auto) 3.8 % (10.0-50.0); Mean Corpuscular Hemoglobin 32.2 pg (28.0-32.0); Mean Corpuscular Hgb Conc. 33.8 g/dL (32.0-36.0); Mean Corpuscular Volume 95.2 fL (80.0-100.0); Monocytes # (auto) 0.9 10 ^3/uL (0-1.3); Monocytes % (auto) 8.8 % (0.0-12.0); Neutrophils # (auto) 8.8 10 ^3/uL (1.6-8.6); Neutrophils % (auto) 86.9 % (37.0-80.0); Nucleated Red Blood Cells % 0.1 %; Red Blood Cells 3.84 10^6/uL (4.5-5.90); Red Cell Distribution Width 16.3 % (11.8-14.3); White Blood Cell 10.1 10^3/uL (4.4-10.8)
[2022-11-20 05:17] LABS: Calcium 8.9 mg/dL (8.5-10.1)
[2022-11-20 05:21] LABS: Potassium 6.4 mmol/L (3.5-5.1)
[2022-11-20 05:52] LABS: BUN/Creatinine Ratio 6.6 (10.0-20.0)
[2022-11-20] MEDS ORDERED: SODIUM CHL 0.9% 1000 ML BAG XX ONE (07:00)
[2022-11-20] MEDS: PANTOPRAZOLE 40 MG TAB PO SCH (10:00)
[2022-11-20] MEDS: LOSARTAN POTASSIUM 50 MG TAB PO SCH (12:56)
[2022-11-20] MEDS: TICAGRELOR 90 MG TAB PO SCH ×2 (12:57→21:08)
[2022-11-20] MEDS: ISOSORBIDE MONONITRATE ER 60 MG TAB PO SCH (12:57)
[2022-11-20] MEDS: CARVEDILOL 3.125 MG TAB PO SCH ×2 (12:59→21:08)
[2022-11-20] MEDS: NITROGLYCERIN 50MG/250ML 250 ML IV SCH (17:00)
[2022-11-20] MEDS: MELATONIN 5 MG TAB PO SCH (21:08)
[2022-11-21] VITALS (95 sets, daily range): BP systolic 99–222; BP diastolic 22–158
[2022-11-21] MEDS: HYDROmorphone HCL 2 MG/ML VL/or syr IV PRN ×3 (05:06→21:23)
[2022-11-21 05:23] LABS: Calcium 9.2 mg/dL (8.5-10.1)
[2022-11-21 05:26] LABS: BUN/Creatinine Ratio 6.7 (10.0-20.0)
[2022-11-21] MEDS ORDERED: SODIUM BICARBONATE 8.4% INJ 50ML SYRINGE IV ONE (06:15)
[2022-11-21] MEDS ORDERED: CALCIUM GLUC 1,000mg/50ml-NS 50 ML IV ONE (06:15)
[2022-11-21] MEDS ORDERED: ALBUTEROL SULF 2.5 MG/0.5ML(0.5%) NEB SOLN NEB ONE (06:15)
[2022-11-21] MEDS ORDERED: InsuLIN REG 1unit/0.01ml Soln (100units/ml) IV ONE (06:15)
[2022-11-21] MEDS ORDERED: DEXTROSE (50%) 50ML SYRG IV ONE (06:15)
[2022-11-21] MEDS ORDERED: DEXTROSE 10% 250 ML IV ONE (06:51)
[2022-11-21] MEDS: SODIUM ZIRCONIUM CYCL 10 GM PAK PO SCH ×2 (06:52→09:51)
[2022-11-21] MEDS ORDERED: DEXTROSE 10% 250 ML Bag IV ONE (07:00)
[2022-11-21] MEDS: ISOSORBIDE MONONITRATE ER 60 MG TAB PO SCH (09:50)
[2022-11-21] MEDS: TICAGRELOR 90 MG TAB PO SCH ×2 (09:50→21:27)
[2022-11-21] MEDS: CARVEDILOL 3.125 MG TAB PO SCH ×2 (09:51→21:31)
[2022-11-21] MEDS: PANTOPRAZOLE 40 MG TAB PO SCH (09:51)
[2022-11-21] MEDS: NITROGLYCERIN 50MG/250ML 250 ML IV SCH ×2 (10:24→17:03)
[2022-11-21 13:26] LABS: Hematocrit 33.2 % (41.0-53.0); Hemoglobin 11.1 g/dL (13.5-17.5)
[2022-11-21] MEDS: hydrALAZINE HCL 25 MG TAB PO SCH ×2 (15:15→21:26)
[2022-11-21] MEDS: ONDANSETRON HCL 4 MG/2 ML VIAL IV PRN (21:23)
[2022-11-21] MEDS: AMIODARONE HCL 200 MG TAB PO SCH (21:26)
[2022-11-21] MEDS: cloNIDine HCL 0.1 MG TAB PO SCH (21:27)
[2022-11-21] MEDS: MELATONIN 5 MG TAB PO SCH (21:27)
[2022-11-22] VITALS (82 sets, daily range): BP systolic 99–181; BP diastolic 16–110
[2022-11-22] MEDS: HYDROmorphone HCL 2 MG/ML VL/or syr IV PRN ×3 (03:00→20:31)
[2022-11-22 05:33] LABS: Calcium 8.6 mg/dL (8.5-10.1); Potassium 5.3 mmol/L (3.5-5.1)
[2022-11-22 05:35] LABS: BUN/Creatinine Ratio 6.1 (10.0-20.0)
[2022-11-22] MEDS: hydrALAZINE HCL 25 MG TAB PO SCH ×3 (05:46→21:35)
[2022-11-22] MEDS: NITROGLYCERIN 50MG/250ML 250 ML IV SCH (05:47)
[2022-11-22] MEDS ORDERED: SODIUM CHL 0.9% 1000 ML BAG XX ONE (07:00)
[2022-11-22] MEDS: CARVEDILOL 3.125 MG TAB PO SCH ×2 (10:00→21:36)
[2022-11-22] MEDS: TICAGRELOR 90 MG TAB PO SCH ×2 (11:01→19:31)
[2022-11-22] MEDS: AMIODARONE HCL 200 MG TAB PO SCH ×2 (11:01→21:36)
[2022-11-22] MEDS: PANTOPRAZOLE 40 MG TAB PO SCH (11:01)
[2022-11-22] MEDS: ISOSORBIDE MONONITRATE ER 60 MG TAB PO SCH (11:03)
[2022-11-22] MEDS: cloNIDine HCL 0.1 MG TAB PO SCH ×2 (11:03→21:37)
[2022-11-22] MEDS ORDERED: LIDOCAINE 2%HCL (LOCAL ANESTH.) INJ 20ML MDV ONE (16:04)
[2022-11-22] MEDS ORDERED: IODIXANOL 320MG/ML 100ML BTL IV ONE ×5 (16:04→19:19)
[2022-11-22] MEDS ORDERED: ANGIOMAX 250 MG VIAL IV ONE (16:34)
[2022-11-22] MEDS ORDERED: SODIUM CHL 0.9% 50 ML ONE (16:35)
[2022-11-22] MEDS ORDERED: MIDAZOLAM HCL 2MG/2ML 2ml VIAL (1mg/ml) ONE ×2 (16:35→17:21)
[2022-11-22] MEDS ORDERED: fentaNYL CITRATE 100 MCG/2 ML VL ONE (16:35)
[2022-11-22] MEDS ORDERED: HYDROmorphone HCL 2 MG/ML VL/or syr ONE (18:07)
[2022-11-22] MEDS ORDERED: hydrALAZINE HCL 20 MG/ML VL ONE (18:51)
[2022-11-22] MEDS ORDERED: NITROGLYCERIN 0.4MG/DOSE SPRAY 4.9GM ONE (19:01)
[2022-11-22] MEDS ORDERED: TICAGRELOR 90 MG TAB ONE (19:26)
[2022-11-22] MEDS: cloNIDine HCL 0.1 MG TAB PO PRN (20:30)
[2022-11-22] MEDS ORDERED: EPOETIN ALFA-EPBX 4,000 UNIT/ML VIAL SC ONE (21:00)
[2022-11-22] MEDS: MELATONIN 5 MG TAB PO SCH (21:37)
[2022-11-23] VITALS (55 sets, daily range): BP systolic 73–168; BP diastolic 19–77
[2022-11-23] MEDS: HYDROmorphone HCL 2 MG/ML VL/or syr IV PRN ×2 (02:17→08:05)
[2022-11-23 05:09] LABS: Basophils # (auto) 0.1 10 ^3/uL (0-0.2); Basophils % (auto) 0.8 % (0.0-2.0); Eosinophils # (auto) 0.1 10 ^3/uL (0-0.8); Eosinophils % (auto) 0.8 % (0.0-7.0); Hematocrit 31.1 % (41.0-53.0); Hemoglobin 10.5 g/dL (13.5-17.5); Lymphocytes # (auto) 0.5 10 ^3/uL (0.4-5.4); Lymphocytes % (auto) 6.8 % (10.0-50.0); Mean Corpuscular Hemoglobin 32.3 pg (28.0-32.0); Mean Corpuscular Hgb Conc. 33.9 g/dL (32.0-36.0); Mean Corpuscular Volume 95.1 fL (80.0-100.0); Monocytes # (auto) 0.6 10 ^3/uL (0-1.3); Monocytes % (auto) 9.1 % (0.0-12.0); Neutrophils # (auto) 5.5 10 ^3/uL (1.6-8.6); Neutrophils % (auto) 82.5 % (37.0-80.0); Red Blood Cells 3.27 10^6/uL (4.5-5.90); Red Cell Distribution Width 15.3 % (11.8-14.3); White Blood Cell 6.7 10^3/uL (4.4-10.8)
[2022-11-23 05:17] LABS: BUN/Creatinine Ratio 4.7 (10.0-20.0); Calcium 8.9 mg/dL (8.5-10.1); Potassium 5.2 mmol/L (3.5-5.1)
[2022-11-23] MEDS: hydrALAZINE HCL 25 MG TAB PO SCH ×2 (06:00→14:00)
[2022-11-23] MEDS: ONDANSETRON HCL 4 MG/2 ML VIAL IV PRN ×2 (08:04→11:52)
[2022-11-23] MEDS: PANTOPRAZOLE 40 MG TAB PO SCH (09:38)
[2022-11-23] MEDS: CARVEDILOL 3.125 MG TAB PO SCH (09:38)
[2022-11-23] MEDS: ISOSORBIDE MONONITRATE ER 60 MG TAB PO SCH (09:39)
[2022-11-23] MEDS: cloNIDine HCL 0.1 MG TAB PO SCH (09:40)
[2022-11-23] MEDS: TICAGRELOR 90 MG TAB PO SCH (09:40)
[2022-11-23] MEDS: AMIODARONE HCL 200 MG TAB PO SCH (10:00)
[2022-11-23] MEDS ORDERED: TICA90TA PO (12:06)
[2022-11-23] MEDS ORDERED: AMIO200T33 PO (12:06)
[2022-11-23] MEDS ORDERED: CAR3125T PO (12:06)
[2022-11-23] MEDS ORDERED: NIFE1TAB31 PO (12:06)
[2022-11-23] MEDS ORDERED: HYDR-4298 PO (12:06)
[2022-11-23] MEDS ORDERED: ASPI325T4 PO (12:06)
[2022-11-23] MEDS ORDERED: ISO60SRT PO (12:06)
[2022-11-23] MEDS ORDERED: cloNIDine HCL 0.1 MG TAB PO SCH (22:00)
== END 2022-11-23 16:07 | disposition home or self-care (01) | DRG 174 ==
LOC: EDBD 01:31 → ER 01:34 → TELE 07:14 → TELE-WESTW 11-18 08:01 → ICU CENTRL 11-19 17:36
PROVIDERS: ADMIT Nurse Practitioner; ATTEND Internal Medicine
PROC: 5A1D70Z Performance of Urinary Filtration, Intermittent, Less than 6 Hours Per Day (ICD-10-PCS; principal; 2022-11-18)
PROC: 027034Z Dilation of Coronary Artery, One Artery with Drug-eluting Intraluminal Device, Percutaneous Approach (ICD-10-PCS; 2022-11-19)
PROC: B211YZZ Fluoroscopy of Multiple Coronary Arteries using Other Contrast (ICD-10-PCS; 2022-11-19)
PROC: 4A023N7 Measurement of Cardiac Sampling and Pressure, Left Heart, Percutaneous Approach (ICD-10-PCS; 2022-11-19)
PROC: B21FYZZ Fluoroscopy of Other Bypass Graft using Other Contrast (ICD-10-PCS; 2022-11-19)
PROC: 5A1D70Z Performance of Urinary Filtration, Intermittent, Less than 6 Hours Per Day (ICD-10-PCS; 2022-11-20)
PROC: 05HB33Z Insertion of Infusion Device into Right Basilic Vein, Percutaneous Approach (ICD-10-PCS; 2022-11-20)
PROC: B54MZZA Ultrasonography of Right Upper Extremity Veins, Guidance (ICD-10-PCS; 2022-11-20)
PROC: 5A1D70Z Performance of Urinary Filtration, Intermittent, Less than 6 Hours Per Day (ICD-10-PCS; 2022-11-22)
PROC: 027135Z Dilation of Coronary Artery, Two Arteries with Two Drug-eluting Intraluminal Devices, Percutaneous Approach (ICD-10-PCS; 2022-11-22)
PROC: 02F13ZZ Fragmentation in Coronary Artery, Two Arteries, Percutaneous Approach (ICD-10-PCS; 2022-11-22)
DX: I21.4 Non-ST elevation (NSTEMI) myocardial infarction (principal); I12.0 Hypertensive chronic kidney disease with stage 5 chronic kidney disease or end stage renal disease; I42.9 Cardiomyopathy, unspecified; E83.41 Hypermagnesemia; E83.51 Hypocalcemia; E11.22 Type 2 diabetes mellitus with diabetic chronic kidney disease; N18.6 End stage renal disease; E78.5 Hyperlipidemia, unspecified; I25.10 Atherosclerotic heart disease of native coronary artery without angina pectoris; N25.81 Secondary hyperparathyroidism of renal origin; E87.5 Hyperkalemia; Z99.2 Dependence on renal dialysis; I25.2 Old myocardial infarction; Z95.1 Presence of aortocoronary bypass graft; Z98.61 Coronary angioplasty status; Z82.49 Family history of ischemic heart disease and other diseases of the circulatory system; Z80.0 Family history of malignant neoplasm of digestive organs; Z79.01 Long term (current) use of anticoagulants
CPT/HCPCS: 36415; 71045; 76937; 80048; 80053; 82270; 82962; 83735; 83880; 84132; 84484; 85014; 85018; 85025; 85610; 85730; 86850; 86900; 86901; 87081; 87340; 87493; 90935; 92928; 92929; 93005; 93458; 99152; 99153; 99291; C1884; C1887; G0378; J1815; J2250; J2405; Q9967

== ENCOUNTER 2023-03-24 13:24 | Inpatient (IN) | payer MEDICAID ==
[~2023-03-24] VITALS: Ht 177.8 cm; Wt 74.5 kg
[~2023-03-24 13:24] MED LIST changes: +AMIO200T33 PO; +ASPI325T4 PO; +ATO40T PO; +CAR3125T PO; +HYDR-4298 PO; +RANO500T3 PO
[2023-03-24] MEDS ORDERED: SODIUM CHLORIDE 0.9% 1,000 ML IV ONE (13:45)
[2023-03-24 14:17] LABS: Basophils # (auto) 0 10 ^3/uL (0-0.2); Basophils % (auto) 0.7 % (0.0-2.0); Eosinophils # (auto) 0 10 ^3/uL (0-0.8); Eosinophils % (auto) 0.7 % (0.0-7.0); Hematocrit 30.1 % (41.0-53.0); Hemoglobin 9.9 g/dL (13.5-17.5); Lymphocytes # (auto) 0.4 10 ^3/uL (0.4-5.4); Mean Corpuscular Hemoglobin 32.5 pg (28.0-32.0); Mean Corpuscular Volume 98.6 fL (80.0-100.0); Monocytes # (auto) 0.6 10 ^3/uL (0-1.3); Monocytes % (auto) 9.5 % (0.0-12.0); Neutrophils # (auto) 5.2 10 ^3/uL (1.6-8.6); Neutrophils % (auto) 82.1 % (37.0-80.0); Nucleated Red Blood Cells % 0.1 %; Red Blood Cells 3.05 10^6/uL (4.5-5.90); Red Cell Distribution Width 14.7 % (11.8-14.3); White Blood Cell 6.4 10^3/uL (4.4-10.8)
[2023-03-24 14:48] LABS: Albumin 3.6 g/dL (3.2-4.8); Alkaline Phosphatase 91 U/L (46-116); Anion Gap 9 (5-15); Aspartate Aminotransferase < 8 U/L (13-40); BUN/Creatinine Ratio 6.3 (10.0-20.0); Blood Urea Nitrogen 30 mg/dL (9-23); Calcium 9.4 mg/dL (8.7-10.4); Carbon Dioxide 32 mmol/L (20-30); Chloride 94 mmol/L (98-107); Glucose 128 mg/dL (74-106); Magnesium 1.9 mg/dL (1.6-2.6); Sodium 135 mmol/L (136-145)
[2023-03-24 14:49] LABS: Bilirubin, Total 0.2 mg/dL (0.2-1.0); Total Protein 5.8 g/dL (5.7-8.2)
[2023-03-24 14:51] LABS: Alanine Aminotransferase < 9 U/L (7-40); Potassium 3.3 mmol/L (3.5-5.1)
[2023-03-24] MEDS ORDERED: SODIUM CHLORIDE 0.9% 1,000 ML IV SCH (16:15)
[2023-03-24] MEDS ORDERED: DEXTROSE (50%) 50ML SYRG IV PRN (16:15)
[2023-03-24] MEDS ORDERED: DOCUSATE SOD 100 MG CAP PO PRN (16:15)
[2023-03-24] MEDS ORDERED: MORPHINE SULFATE INJ 2 MG/ml SYRG IV PRN (16:15)
[2023-03-24 16:26] VITALS: PULSE 86; RESP 16; O2SAT 99
[2023-03-24] MEDS: InsuLIN REG 1unit/0.01ml Soln (100units/ml) SC SCH ×2 (17:00→22:00)
[2023-03-24] MEDS: ACCU-CHEK COMFORT CURVE STRIP VI SCH ×2 (17:24→22:23)
[2023-03-24 17:59] LABS: INR 1.04 (0.9-1.15); Partial Thromboplastin Time 32.2 SEC (24.5-34.5); Prothrombin Time 10.9 sec (9.3-11.8)
[2023-03-24 19:45] VITALS: O2SAT 99
[2023-03-24 21:27] LABS: Hematocrit 26.5 % (41.0-53.0); Hemoglobin 8.9 g/dL (13.5-17.5)
[2023-03-24] MEDS ORDERED: TEMAZEPAM 15 MG CAP PO ONE (21:30)
[2023-03-24] MEDS ORDERED: TICAGRELOR 90 MG TAB PO SCH (22:00)
[2023-03-24] MEDS: RANOLAZINE ER 500 MG TAB PO SCH (22:29)
[2023-03-24] MEDS: PANTOPRAZOLE 40 MG/10 ML VIAL INJ IV SCH (22:35)
[2023-03-25 05:27] LABS: Basophils # (auto) 0.1 10 ^3/uL (0-0.2); Eosinophils # (auto) 0.1 10 ^3/uL (0-0.8); Eosinophils % (auto) 1.2 % (0.0-7.0); Hematocrit 28.9 % (41.0-53.0); Hemoglobin 9.7 g/dL (13.5-17.5); Lymphocytes # (auto) 0.9 10 ^3/uL (0.4-5.4); Mean Corpuscular Hemoglobin 33.3 pg (28.0-32.0); Mean Corpuscular Hgb Conc. 33.7 g/dL (32.0-36.0); Monocytes # (auto) 0.8 10 ^3/uL (0-1.3); Neutrophils # (auto) 4.6 10 ^3/uL (1.6-8.6); Neutrophils % (auto) 70.8 % (37.0-80.0); Nucleated Red Blood Cells % 0.1 %; Red Blood Cells 2.92 10^6/uL (4.5-5.90); Red Cell Distribution Width 14.5 % (11.8-14.3); White Blood Cell 6.5 10^3/uL (4.4-10.8)
[2023-03-25 05:35] LABS: Albumin 3.7 g/dL (3.2-4.8); Alkaline Phosphatase 84 U/L (46-116); Anion Gap 8 (5-15); Aspartate Aminotransferase < 8 U/L (13-40); BUN/Creatinine Ratio 5.1 (10.0-20.0); Bilirubin, Total 0.2 mg/dL (0.2-1.0); Blood Urea Nitrogen 33 mg/dL (9-23); Calcium 9.2 mg/dL (8.5-10.1); Carbon Dioxide 34 mmol/L (20-30); Chloride 95 mmol/L (98-107); Glucose 79 mg/dL (74-106); Potassium 4.4 mmol/L (3.5-5.1); Sodium 137 mmol/L (136-145)
[2023-03-25 05:36] LABS: Total Protein 6.2 g/dL (5.7-8.2)
[2023-03-25 06:00] LABS: Alanine Aminotransferase < 9 U/L (7-40)
[2023-03-25] MEDS ORDERED: ASPirin 81 mg TAB PO ONE (06:15)
[2023-03-25] MEDS: InsuLIN REG 1unit/0.01ml Soln (100units/ml) SC SCH ×4 (06:52→21:46)
[2023-03-25] MEDS: ACCU-CHEK COMFORT CURVE STRIP VI SCH ×4 (06:52→21:46)
[2023-03-25 08:00] VITALS: PULSE 61
[2023-03-25 09:00] VITALS: BP 135/74; PULSE 60; RESP 20; TEMP 97.6; O2SAT 99
[2023-03-25] MEDS ORDERED: PATIENTS OWN MEDICATION (Aspirin 81 MG) PO SCH (10:00)
[2023-03-25] MEDS: PANTOPRAZOLE 40 MG/10 ML VIAL INJ IV SCH ×2 (10:00→21:33)
[2023-03-25] MEDS ORDERED: LACTULOSE 20Gm/30ML SOLN PO ONE (11:00)
[2023-03-25] MEDS: RANOLAZINE ER 500 MG TAB PO SCH ×2 (11:18→21:34)
[2023-03-25] MEDS: ISOSORBIDE MONONITRATE ER 60 MG TAB PO SCH (11:18)
[2023-03-25] MEDS: ATORVASTATIN 20 MG TAB PO SCH (11:18)
[2023-03-25 13:00] VITALS: BP 147/87; PULSE 70; RESP 19; TEMP 97.6; O2SAT 99
[2023-03-25] MEDS: ONDANSETRON HCL 4 MG/2 ML VIAL IV PRN (15:39)
[2023-03-25 17:00] VITALS: BP 135/78; PULSE 63; RESP 20; TEMP 98.2; O2SAT 99
[2023-03-25 20:00] VITALS: BP 157/84; PULSE 67; PULSE 68; RESP 18; TEMP 98.2; O2SAT 99
[2023-03-25 22:00] VITALS: BP 157/84; PULSE 67; RESP 18; TEMP 98.2; O2SAT 99
[2023-03-25] MEDS: hydrALAZINE HCL 20 MG/ML VL IV PRN (23:14)
[2023-03-26] VITALS (8 sets, daily range): BP systolic 149–171; BP diastolic 72–95; PULSE 61–89; RESP 16–24; TEMP 97.6–99; O2SAT 97–100
[2023-03-26] MEDS: hydrALAZINE HCL 20 MG/ML VL IV PRN (05:17)
[2023-03-26 05:47] LABS: Basophils # (auto) 0 10 ^3/uL (0-0.2); Basophils % (auto) 0.7 % (0.0-2.0); Eosinophils # (auto) 0.1 10 ^3/uL (0-0.8); Eosinophils % (auto) 1.6 % (0.0-7.0); Hematocrit 25.1 % (41.0-53.0); Hemoglobin 8.7 g/dL (13.5-17.5); Lymphocytes # (auto) 0.9 10 ^3/uL (0.4-5.4); Lymphocytes % (auto) 14.4 % (10.0-50.0); Mean Corpuscular Hemoglobin 33.8 pg (28.0-32.0); Mean Corpuscular Hgb Conc. 34.6 g/dL (32.0-36.0); Mean Corpuscular Volume 97.6 fL (80.0-100.0); Monocytes # (auto) 0.8 10 ^3/uL (0-1.3); Monocytes % (auto) 12.4 % (0.0-12.0); Neutrophils # (auto) 4.3 10 ^3/uL (1.6-8.6); Neutrophils % (auto) 70.9 % (37.0-80.0); Nucleated Red Blood Cells % 0.1 %; Red Blood Cells 2.57 10^6/uL (4.5-5.90); Red Cell Distribution Width 14.5 % (11.8-14.3); White Blood Cell 6.1 10^3/uL (4.4-10.8)
[2023-03-26] MEDS: ACCU-CHEK COMFORT CURVE STRIP VI SCH ×4 (06:41→23:22)
[2023-03-26] MEDS: InsuLIN REG 1unit/0.01ml Soln (100units/ml) SC SCH ×4 (06:42→22:00)
[2023-03-26] MEDS ORDERED: SODIUM CHL 0.9% 1000 ML BAG XX ONE (07:00)
[2023-03-26] MEDS: ACETAMINOPHEN 325 MG TAB PO PRN ×2 (08:41→19:03)
[2023-03-26] MEDS: RANOLAZINE ER 500 MG TAB PO SCH ×2 (09:02→22:00)
[2023-03-26] MEDS: PANTOPRAZOLE 40 MG/10 ML VIAL INJ IV SCH ×2 (09:05→21:41)
[2023-03-26] MEDS: ISOSORBIDE MONONITRATE ER 60 MG TAB PO SCH ×2 (10:00→20:22)
[2023-03-26] MEDS ORDERED: ASPirin 81 mg TAB PO SCH (10:00)
[2023-03-26] MEDS: ONDANSETRON HCL 4 MG/2 ML VIAL IV PRN (11:06)
[2023-03-26] MEDS: ATORVASTATIN 20 MG TAB PO SCH (11:06)
[2023-03-26] MEDS: diphenhdrAMINE HCL 25 MG CAP PO PRN ×3 (15:54→23:21)
[2023-03-26] MEDS ORDERED: EPOETIN ALFA-EPBX 4,000 UNIT/ML VIAL SC ONE (21:00)
[2023-03-26] MEDS ORDERED: MELATONIN 5 MG TAB PO ONE (23:15)
[2023-03-26] MEDS: CARVEDILOL 3.125 MG TAB PO SCH (23:18)
[2023-03-27 05:00] VITALS: BP 145/57; PULSE 68; RESP 16; TEMP 97.4; O2SAT 100
[2023-03-27] MEDS: InsuLIN REG 1unit/0.01ml Soln (100units/ml) SC SCH ×4 (06:39→22:00)
[2023-03-27] MEDS: ACCU-CHEK COMFORT CURVE STRIP VI SCH ×4 (06:39→22:07)
[2023-03-27] MEDS: NITROGLYCERIN 0.4 MG SL TAB SL PRN ×2 (07:40→07:52)
[2023-03-27 08:00] VITALS: BP_SYST 119; BP_SYST 123; BP_DIAS 36; BP_DIAS 42; PULSE 62; PULSE 80; RESP 20; RESP 58; TEMP 97.7; O2SAT 100
[2023-03-27] MEDS ORDERED: amLODIPine BESYLATE 5 MG TAB PO ONE (08:00)
[2023-03-27 09:04] LABS: Basophils # (auto) 0.1 10 ^3/uL (0-0.2); Basophils % (auto) 1.1 % (0.0-2.0); Eosinophils # (auto) 0.1 10 ^3/uL (0-0.8); Eosinophils % (auto) 1.3 % (0.0-7.0); Hematocrit 26.1 % (41.0-53.0); Hemoglobin 8.8 g/dL (13.5-17.5); Lymphocytes # (auto) 0.6 10 ^3/uL (0.4-5.4); Mean Corpuscular Hemoglobin 33.2 pg (28.0-32.0); Mean Corpuscular Hgb Conc. 33.8 g/dL (32.0-36.0); Mean Corpuscular Volume 98.3 fL (80.0-100.0); Monocytes # (auto) 0.5 10 ^3/uL (0-1.3); Monocytes % (auto) 9.7 % (0.0-12.0); Neutrophils # (auto) 3.9 10 ^3/uL (1.6-8.6); Neutrophils % (auto) 76.9 % (37.0-80.0); Red Blood Cells 2.65 10^6/uL (4.5-5.90); Red Cell Distribution Width 14.7 % (11.8-14.3); White Blood Cell 5.1 10^3/uL (4.4-10.8)
[2023-03-27 09:20] LABS: Alanine Aminotransferase 11 U/L (7-40); Albumin 3.7 g/dL (3.2-4.8); Alkaline Phosphatase 94 U/L (46-116); Anion Gap 6 (5-15); Aspartate Aminotransferase < 8 U/L (13-40); BUN/Creatinine Ratio 4.3 (10.0-20.0); Bilirubin, Total 0.2 mg/dL (0.2-1.0); Blood Urea Nitrogen 28 mg/dL (9-23); Carbon Dioxide 32 mmol/L (20-30); Chloride 98 mmol/L (98-107); Glucose 74 mg/dL (74-106); Potassium 4.5 mmol/L (3.5-5.1); Sodium 136 mmol/L (136-145)
[2023-03-27] MEDS: PANTOPRAZOLE 40 MG/10 ML VIAL INJ IV SCH ×2 (10:00→22:00)
[2023-03-27] MEDS: ATORVASTATIN 20 MG TAB PO SCH (11:03)
[2023-03-27] MEDS: RANOLAZINE ER 500 MG TAB PO SCH ×2 (11:03→21:57)
[2023-03-27] MEDS: CARVEDILOL 3.125 MG TAB PO SCH ×2 (11:08→21:59)
[2023-03-27 12:00] VITALS: BP 132/31; PULSE 63; RESP 20; TEMP 97.9; O2SAT 97
[2023-03-27] MEDS: TICAGRELOR 90 MG TAB PO SCH ×2 (13:42→21:57)
[2023-03-27] MEDS: ASPirin 81 mg TAB PO SCH (13:42)
[2023-03-27 16:00] VITALS: BP 124/40; PULSE 62; RESP 20; TEMP 98.2; O2SAT 100
[2023-03-27] MEDS: ONDANSETRON HCL 4 MG/2 ML VIAL IV PRN (16:19)
[2023-03-27 20:00] VITALS: BP 128/36; PULSE 61; PULSE 66; RESP 18; TEMP 97.8; O2SAT 100
[2023-03-27] MEDS: ZOLPIDEM TARTRATE 5 MG TAB PO PRN (21:57)
[2023-03-27] MEDS ORDERED: MELATONIN 5 MG TAB PO ONE (22:00)
[2023-03-27 23:00] VITALS: BP 128/36; PULSE 61; RESP 18; TEMP 97.8; O2SAT 100
[2023-03-28] VITALS (8 sets, daily range): BP systolic 106–150; BP diastolic 34–65; PULSE 51–59; RESP 16–18; TEMP 98–98.6; O2SAT 98–100
[2023-03-28] MEDS: ACCU-CHEK COMFORT CURVE STRIP VI SCH ×4 (06:43→21:49)
[2023-03-28] MEDS: InsuLIN REG 1unit/0.01ml Soln (100units/ml) SC SCH ×4 (06:45→21:50)
[2023-03-28] MEDS: ATORVASTATIN 20 MG TAB PO SCH (09:41)
[2023-03-28] MEDS: amLODIPine BESYLATE 5 MG TAB PO SCH (09:43)
[2023-03-28] MEDS: TICAGRELOR 90 MG TAB PO SCH ×2 (09:44→21:48)
[2023-03-28] MEDS: RANOLAZINE ER 500 MG TAB PO SCH ×2 (09:44→21:48)
[2023-03-28] MEDS: ASPirin 81 mg TAB PO SCH (09:47)
[2023-03-28] MEDS: CARVEDILOL 3.125 MG TAB PO SCH (09:48)
[2023-03-28] MEDS: ISOSORBIDE MONONITRATE ER 60 MG TAB PO SCH (09:48)
[2023-03-28] MEDS: PANTOPRAZOLE 40 MG/10 ML VIAL INJ IV SCH (09:49)
[2023-03-28] MEDS: ONDANSETRON HCL 4 MG/2 ML VIAL IV PRN ×2 (13:15→19:06)
[2023-03-28] MEDS ORDERED: ATROPINE SULF 1 MG/10ml SYR IV PRN (17:30)
[2023-03-28 17:34] LABS: Chloride 93 mmol/L (98-107); Potassium 5.5 mmol/L (3.5-5.1); Sodium 133 mmol/L (136-145)
[2023-03-28 17:35] LABS: Anion Gap 9 (5-15); Calcium 8.3 mg/dL (8.7-10.4); Carbon Dioxide 31 mmol/L (20-30)
[2023-03-28 17:40] LABS: BUN/Creatinine Ratio 5.1 (10.0-20.0); Glucose 78 mg/dL (74-106)
[2023-03-28 17:41] LABS: Magnesium 2.5 mg/dL (1.6-2.6)
[2023-03-28 17:48] LABS: Blood Urea Nitrogen 47 mg/dL (9-23)
[2023-03-28] MEDS: ZOLPIDEM TARTRATE 5 MG TAB PO PRN (21:48)
[2023-03-29 04:54] VITALS: BP 119/54; PULSE 47; RESP 17; TEMP 98.6; O2SAT 98
[2023-03-29] MEDS: InsuLIN REG 1unit/0.01ml Soln (100units/ml) SC SCH ×2 (06:18→11:30)
[2023-03-29] MEDS: ACCU-CHEK COMFORT CURVE STRIP VI SCH ×2 (06:18→11:30)
[2023-03-29] MEDS ORDERED: SODIUM CHL 0.9% 1000 ML BAG XX ONE (07:00)
[2023-03-29 08:00] VITALS: PULSE 46
[2023-03-29 09:00] VITALS: BP 139/34; PULSE 54; RESP 20; TEMP 97.8; O2SAT 100
[2023-03-29] MEDS: TICAGRELOR 90 MG TAB PO SCH (09:11)
[2023-03-29] MEDS: ATORVASTATIN 20 MG TAB PO SCH (09:12)
[2023-03-29] MEDS: ASPirin 81 mg TAB PO SCH (09:12)
[2023-03-29] MEDS: RANOLAZINE ER 500 MG TAB PO SCH (09:12)
[2023-03-29] MEDS: amLODIPine BESYLATE 5 MG TAB PO SCH (09:12)
[2023-03-29] MEDS ORDERED: PANTOPRAZOLE 40 MG TAB PO SCH (10:00)
[2023-03-29] MEDS: ISOSORBIDE MONONITRATE ER 60 MG TAB PO SCH (10:00)
[2023-03-29] MEDS ORDERED: diphenhdrAMINE HCL 50 MG/1 ML VL IV ONE (10:00)
[2023-03-29] MEDS: ONDANSETRON HCL 4 MG/2 ML VIAL IV PRN (10:09)
[2023-03-29 10:11] LABS: Chloride 94 mmol/L (98-107); Sodium 131 mmol/L (136-145)
[2023-03-29 10:12] LABS: Anion Gap 10 (5-15); Carbon Dioxide 27 mmol/L (20-30)
[2023-03-29 10:13] LABS: Calcium 8.7 mg/dL (8.5-10.1)
[2023-03-29 10:17] LABS: BUN/Creatinine Ratio 4.4 (10.0-20.0); Blood Urea Nitrogen 42 mg/dL (9-23); Glucose 67 mg/dL (74-106)
[2023-03-29 11:54] LABS: Potassium 5.6 mmol/L (3.5-5.1)
[2023-03-29 13:00] VITALS: BP 149/69; PULSE 87; RESP 18; TEMP 98; O2SAT 98
== END 2023-03-29 15:45 | disposition home or self-care (01) | DRG 422 ==
LOC: ER 13:24 → EDSEX 13:24 → EDBD 13:24 → TELE 16:13 → TELE-CENTR 03-25 07:55
PROVIDERS: ADMIT Nurse Practitioner Family; ATTEND Internal Medicine
PROC: 5A1D70Z Performance of Urinary Filtration, Intermittent, Less than 6 Hours Per Day (ICD-10-PCS; principal; 2023-03-26)
PROC: 5A1D70Z Performance of Urinary Filtration, Intermittent, Less than 6 Hours Per Day (ICD-10-PCS; 2023-03-29)
DX: E86.1 Hypovolemia (principal); I21.A1 Myocardial infarction type 2; I12.0 Hypertensive chronic kidney disease with stage 5 chronic kidney disease or end stage renal disease; D63.1 Anemia in chronic kidney disease; N18.6 End stage renal disease; I95.89 Other hypotension; E11.22 Type 2 diabetes mellitus with diabetic chronic kidney disease; N25.81 Secondary hyperparathyroidism of renal origin; E87.6 Hypokalemia; I25.10 Atherosclerotic heart disease of native coronary artery without angina pectoris; N28.89 Other specified disorders of kidney and ureter; E78.00 Pure hypercholesterolemia, unspecified; Z95.5 Presence of coronary angioplasty implant and graft; Z95.1 Presence of aortocoronary bypass graft; Z99.2 Dependence on renal dialysis; I25.2 Old myocardial infarction; Z86.73 Personal history of transient ischemic attack (TIA), and cerebral infarction without residual deficits; Z80.0 Family history of malignant neoplasm of digestive organs; Z82.49 Family history of ischemic heart disease and other diseases of the circulatory system
CPT/HCPCS: 36415; 71045; 80048; 80053; 82270; 82962; 83735; 83880; 84484; 85014; 85018; 85025; 85610; 85730; 86850; 86900; 86901; 87081; 90935; 93005; 96360; 99291; C9113; G0378; J1815; J2405

== ENCOUNTER 2023-04-07 01:41 | Inpatient (IN) | payer MEDICAID ==
[~2023-04-07] VITALS: Ht 177.8 cm; Wt 70.7 kg
[~2023-04-07 01:41] MED LIST changes: -AMIO200T33 PO; -CAR3125T PO
[2023-04-07 02:04] LABS: Basophils # (auto) 0 10 ^3/uL (0-0.2); Basophils % (auto) 0.3 % (0.0-2.0); Eosinophils # (auto) 0.1 10 ^3/uL (0-0.8); Eosinophils % (auto) 0.9 % (0.0-7.0); Hematocrit 22.1 % (41.0-53.0); Hemoglobin 7.5 g/dL (13.5-17.5); Lymphocytes # (auto) 0.6 10 ^3/uL (0.4-5.4); Lymphocytes % (auto) 9.5 % (10.0-50.0); Mean Corpuscular Hemoglobin 34.1 pg (28.0-32.0); Mean Corpuscular Hgb Conc. 33.7 g/dL (32.0-36.0); Mean Corpuscular Volume 101.1 fL (80.0-100.0); Monocytes # (auto) 0.7 10 ^3/uL (0-1.3); Neutrophils # (auto) 4.6 10 ^3/uL (1.6-8.6); Neutrophils % (auto) 78.3 % (37.0-80.0); Nucleated Red Blood Cells % 0.1 %; Red Blood Cells 2.19 10^6/uL (4.5-5.90); Red Cell Distribution Width 15.8 % (11.8-14.3); White Blood Cell 5.9 10^3/uL (4.4-10.8)
[2023-04-07 02:18] LABS: INR 1.04 (0.9-1.15); Prothrombin Time 10.9 sec (9.3-11.8)
[2023-04-07 02:20] LABS: Alanine Aminotransferase 15 U/L (7-40); Albumin 4.2 g/dL (3.2-4.8); Alkaline Phosphatase 119 U/L (46-116); Anion Gap 11 (5-15); Aspartate Aminotransferase 8 U/L (13-40); BUN/Creatinine Ratio 4.3 (10.0-20.0); Blood Urea Nitrogen 36 mg/dL (9-23); Calcium 7.7 mg/dL (8.7-10.4); Carbon Dioxide 27 mmol/L (20-30); Chloride 96 mmol/L (98-107); Glucose 78 mg/dL (74-106); Magnesium 2.2 mg/dL (1.6-2.6); Sodium 134 mmol/L (136-145)
[2023-04-07 02:21] LABS: Bilirubin, Total 0.2 mg/dL (0.2-1.0); Total Protein 6.6 g/dL (5.7-8.2)
[2023-04-07 02:22] LABS: Potassium 5.6 mmol/L (3.5-5.1)
[2023-04-07 04:00] VITALS: PULSE 52; RESP 20; O2SAT 99
[2023-04-07] MEDS ORDERED: CALCIUM GLUC 1,000mg/50ml-NS 50 ML IV ONE (04:45)
[2023-04-07] MEDS ORDERED: InsuLIN REG 1unit/0.01ml Soln (100units/ml) IV ONE (04:45)
[2023-04-07] MEDS ORDERED: HEPARIN SODIUM (PORCINE) 5000 UNITS/ML 1ML VIAL IV ONE (04:45)
[2023-04-07] MEDS ORDERED: DEXTROSE (50%) 50ML SYRG IV ONE ×2 (04:45→07:00)
[2023-04-07] MEDS ORDERED: ACETAMINOPHEN 325 MG TAB PO PRN (07:00)
[2023-04-07] MEDS ORDERED: DEXTROSE 50% SYRINGE 50 ML IV ONE (07:00)
[2023-04-07] MEDS ORDERED: MORPHINE SULFATE INJ 2 MG/ml SYRG IV PRN (07:00)
[2023-04-07] MEDS ORDERED: NITROGLYCERIN 0.4 MG SL TAB SL PRN (07:00)
[2023-04-07 07:20] VITALS: PULSE 52; RESP 15; O2SAT 98
[2023-04-07] MEDS: AZITHROMYCIN 500MG/ 250ML 250 ML IV SCH (11:22)
[2023-04-07] MEDS: NIFEdipine ER 30 MG TAB PO SCH (11:23)
[2023-04-07] MEDS: ASPirin 81 mg TAB PO SCH (11:23)
[2023-04-07] MEDS: ISOSORBIDE MONONITRATE ER 60 MG TAB PO SCH (11:23)
[2023-04-07] MEDS: RANOLAZINE ER 500 MG TAB PO SCH ×2 (11:23→21:40)
[2023-04-07] MEDS: TICAGRELOR 90 MG TAB PO SCH ×2 (11:24→21:39)
[2023-04-07] MEDS ORDERED: SODIUM CHL 0.9% 1000 ML BAG XX ONE (12:45)
[2023-04-07] MEDS ORDERED: diphenhdrAMINE HCL 50 MG/1 ML VL IV ONE ×2 (12:45→22:15)
[2023-04-07] MEDS: hydrALAZINE HCL 25 MG TAB PO SCH ×2 (16:07→21:39)
[2023-04-07 17:00] VITALS: BP 157/73; PULSE 60; RESP 16; TEMP 98.1; O2SAT 98
[2023-04-07 18:45] VITALS: BP 157/73; PULSE 60; RESP 16; TEMP 98.1; O2SAT 98
[2023-04-07 20:00] VITALS: PULSE 69
[2023-04-07] MEDS ORDERED: EPOETIN ALFA-EPBX 10,000 UNIT/1ML VIAL SC ONE (21:00)
[2023-04-07 22:00] VITALS: BP 140/75; PULSE 70; RESP 18; TEMP 98.3; O2SAT 99
[2023-04-07] MEDS ORDERED: MELATONIN 5 MG TAB PO ONE (22:00)
[2023-04-07] MEDS ORDERED: ATORVASTATIN 20 MG TAB PO SCH (22:00)
[2023-04-08] MEDS ORDERED: ZOLP10TA PO (04:13)
[2023-04-08 05:00] VITALS: BP 163/84; PULSE 67; RESP 19; TEMP 98.2; O2SAT 99
[2023-04-08 05:09] LABS: Eosinophils # (auto) 0 10 ^3/uL (0-0.8); Hemoglobin 7.8 g/dL (13.5-17.5); Lymphocytes # (auto) 0.4 10 ^3/uL (0.4-5.4); Monocytes # (auto) 0.6 10 ^3/uL (0-1.3); Red Cell Distribution Width 15.5 % (11.8-14.3)
[2023-04-08 05:11] LABS: Basophils # (auto) 0.1 10 ^3/uL (0-0.2); Eosinophils % (auto) 0.8 % (0.0-7.0); Hematocrit 23.1 % (41.0-53.0); Lymphocytes % (auto) 8.5 % (10.0-50.0); Mean Corpuscular Hgb Conc. 33.9 g/dL (32.0-36.0); Mean Corpuscular Volume 100.3 fL (80.0-100.0); Monocytes % (auto) 11.9 % (0.0-12.0); Neutrophils # (auto) 4.1 10 ^3/uL (1.6-8.6); Neutrophils % (auto) 77.8 % (37.0-80.0); White Blood Cell 5.2 10^3/uL (4.4-10.8)
[2023-04-08] MEDS: hydrALAZINE HCL 25 MG TAB PO SCH ×2 (05:31→12:59)
[2023-04-08 05:42] LABS: Alanine Aminotransferase 14 U/L (7-40); Alkaline Phosphatase 120 U/L (46-116); Anion Gap 6 (5-15); Aspartate Aminotransferase < 8 U/L (13-40); BUN/Creatinine Ratio 3.5 (10.0-20.0); Bilirubin, Total 0.2 mg/dL (0.2-1.0); Blood Urea Nitrogen 21 mg/dL (9-23); Calcium 8.8 mg/dL (8.7-10.4); Carbon Dioxide 31 mmol/L (20-30); Chloride 100 mmol/L (98-107); Glucose 72 mg/dL (74-106); Potassium 5.1 mmol/L (3.5-5.1); Sodium 137 mmol/L (136-145); Total Protein 6.3 g/dL (5.7-8.2)
[2023-04-08] MEDS: ONDANSETRON HCL 4 MG/2 ML VIAL IV PRN ×2 (06:29→11:39)
[2023-04-08 08:00] VITALS: PULSE 62; PULSE 65; RESP 16; O2SAT 96
[2023-04-08 08:05] VITALS: BP 152/72; PULSE 62; RESP 16; TEMP 97.3; O2SAT 96
[2023-04-08] MEDS: TICAGRELOR 90 MG TAB PO SCH (09:33)
[2023-04-08] MEDS: NIFEdipine ER 30 MG TAB PO SCH (09:34)
[2023-04-08] MEDS: ASPirin 81 mg TAB PO SCH (09:34)
[2023-04-08] MEDS: RANOLAZINE ER 500 MG TAB PO SCH (09:35)
[2023-04-08] MEDS: AZITHROMYCIN 500MG/ 250ML 250 ML IV SCH (09:35)
[2023-04-08] MEDS: ISOSORBIDE MONONITRATE ER 60 MG TAB PO SCH (09:35)
[2023-04-08 12:00] VITALS: BP 141/84; PULSE 73; RESP 18; TEMP 98.3; O2SAT 97
[2023-04-08 12:23] VITALS: BP 141/84; PULSE 73; RESP 18; TEMP 98.3; O2SAT 97
[2023-04-08 16:00] VITALS: BP 146/85; PULSE 81; RESP 18; TEMP 98.1; O2SAT 96
== END 2023-04-08 18:00 | disposition home or self-care (01) | DRG 198 ==
LOC: ER 01:41 → EDBD 01:41 → TELE 07:00 → TELE-CENTR 16:35
PROVIDERS: ADMIT Nurse Practitioner; ATTEND Internal Medicine Geriatric Medicine
PROC: 5A1D70Z Performance of Urinary Filtration, Intermittent, Less than 6 Hours Per Day (ICD-10-PCS; principal; 2023-04-07)
DX: R07.89 Other chest pain (principal); I25.10 Atherosclerotic heart disease of native coronary artery without angina pectoris; I12.0 Hypertensive chronic kidney disease with stage 5 chronic kidney disease or end stage renal disease; E11.22 Type 2 diabetes mellitus with diabetic chronic kidney disease; N18.6 End stage renal disease; D63.8 Anemia in other chronic diseases classified elsewhere; D53.9 Nutritional anemia, unspecified; R79.89 Other specified abnormal findings of blood chemistry; E87.70 Fluid overload, unspecified; E87.5 Hyperkalemia; I25.2 Old myocardial infarction; Z80.0 Family history of malignant neoplasm of digestive organs; Z95.1 Presence of aortocoronary bypass graft; Z99.2 Dependence on renal dialysis
CPT/HCPCS: 36415; 71045; 80053; 82962; 83735; 83880; 84484; 85025; 85610; 85730; 87081; 90935; 93005; 99291; G0378; J1815; J2405

== ENCOUNTER 2023-04-22 03:20 | Emergency (ER) | payer MEDICAID ==
[~2023-04-22] VITALS: Ht 177.8 cm; Wt 70.1 kg
[~2023-04-22 03:20] MED LIST changes: +ZOLP10TA PO
[2023-04-22] MEDS ORDERED: ONDANSETRON HCL 4 MG/2 ML VIAL IV ONE (03:45)
[2023-04-22] MEDS ORDERED: MORPHINE SULFATE INJ 2 MG/ml SYRG IV ONE (03:45)
[2023-04-22 03:52] LABS: Basophils # (auto) 0.1 10 ^3/uL (0-0.2); Basophils % (auto) 1.3 % (0.0-2.0); Eosinophils # (auto) 0 10 ^3/uL (0-0.8); Eosinophils % (auto) 0.6 % (0.0-7.0); Mean Corpuscular Hgb Conc. 33.6 g/dL (32.0-36.0); Monocytes # (auto) 0.6 10 ^3/uL (0-1.3); Red Blood Cells 2.42 10^6/uL (4.5-5.90); Red Cell Distribution Width 15.4 % (11.8-14.3)
[2023-04-22 03:54] LABS: Hematocrit 24.5 % (41.0-53.0); Hemoglobin 8.2 g/dL (13.5-17.5); Lymphocytes # (auto) 0.5 10 ^3/uL (0.4-5.4); Lymphocytes % (auto) 9.9 % (10.0-50.0); Mean Corpuscular Volume 101.2 fL (80.0-100.0); Monocytes % (auto) 11.1 % (0.0-12.0); Neutrophils # (auto) 4.2 10 ^3/uL (1.6-8.6); Neutrophils % (auto) 77.1 % (37.0-80.0); Nucleated Red Blood Cells % 0.1 %; White Blood Cell 5.4 10^3/uL (4.4-10.8)
[2023-04-22 04:05] LABS: Alanine Aminotransferase 18 U/L (7-40); Albumin 4.5 g/dL (3.2-4.8); Alkaline Phosphatase 103 U/L (46-116); Anion Gap 9 (5-15); Aspartate Aminotransferase 14 U/L (13-40); BUN/Creatinine Ratio 4.4 (10.0-20.0); Bilirubin, Total 0.2 mg/dL (0.2-1.0); Blood Urea Nitrogen 24 mg/dL (9-23); Calcium 9.2 mg/dL (8.7-10.4); Carbon Dioxide 30 mmol/L (20-30); Chloride 97 mmol/L (98-107); Glucose 79 mg/dL (74-106); Magnesium 2.4 mg/dL (1.6-2.6); Potassium 4.9 mmol/L (3.5-5.1); Sodium 136 mmol/L (136-145)
[2023-04-22 04:08] LABS: INR 1.04 (0.9-1.15); Partial Thromboplastin Time 29.6 SEC (24.5-34.5); Prothrombin Time 10.9 sec (9.3-11.8)
[2023-04-22] MEDS ORDERED: IOHEXOL 350 MG/ML 100ML IJ ONE (04:29)
[2023-04-22 04:49] VITALS: PULSE 75; RESP 18; O2SAT 98
[2023-04-22] MEDS ORDERED: FUROSEMIDE 20 MG/2 ML VIAL IV ONE (05:15)
[2023-04-22 07:45] VITALS: BP 133/73; PULSE 62; RESP 14; TEMP 98.5; O2SAT 100
== END 2023-04-22 08:56 | disposition left against medical advice (07) ==
LOC: ER 03:20
DX: I24.9 Acute ischemic heart disease, unspecified (principal); E11.22 Type 2 diabetes mellitus with diabetic chronic kidney disease; I12.0 Hypertensive chronic kidney disease with stage 5 chronic kidney disease or end stage renal disease; N18.6 End stage renal disease; I25.2 Old myocardial infarction; Z99.2 Dependence on renal dialysis
CPT/HCPCS: 36415; 71045; 80053; 83735; 83880; 84484; 85025; 85610; 85730; 93005; 99285; Q9967

== ENCOUNTER 2023-05-30 20:46 | Inpatient (IN) | payer MEDICAID ==
[~2023-05-30] VITALS: Ht 177.8 cm; Wt 72.7 kg
[2023-05-30 21:24] LABS: Basophils # (auto) 0.1 10 ^3/uL (0-0.2); Basophils % (auto) 1.1 % (0.0-2.0); Eosinophils # (auto) 0 10 ^3/uL (0-0.8); Eosinophils % (auto) 0.6 % (0.0-7.0); Hematocrit 27.2 % (41.0-53.0); Hemoglobin 9.3 g/dL (13.5-17.5); Lymphocytes # (auto) 0.7 10 ^3/uL (0.4-5.4); Lymphocytes % (auto) 11.6 % (10.0-50.0); Mean Corpuscular Hemoglobin 33.3 pg (28.0-32.0); Mean Corpuscular Hgb Conc. 34.1 g/dL (32.0-36.0); Mean Corpuscular Volume 97.5 fL (80.0-100.0); Monocytes # (auto) 0.8 10 ^3/uL (0-1.3); Monocytes % (auto) 13.2 % (0.0-12.0); Neutrophils # (auto) 4.7 10 ^3/uL (1.6-8.6); Neutrophils % (auto) 73.5 % (37.0-80.0); Red Blood Cells 2.78 10^6/uL (4.5-5.90); Red Cell Distribution Width 14.6 % (11.8-14.3); White Blood Cell 6.4 10^3/uL (4.4-10.8)
[2023-05-30 21:45] LABS: Alanine Aminotransferase 12 U/L (7-40); Alkaline Phosphatase 101 U/L (46-116); Anion Gap 15 (5-15); Aspartate Aminotransferase < 8 U/L (13-40); BUN/Creatinine Ratio 6.2 (10.0-20.0); Blood Urea Nitrogen 59 mg/dL (9-23); Calcium 8.6 mg/dL (8.7-10.4); Carbon Dioxide 23 mmol/L (20-30); Chloride 95 mmol/L (98-107); Glucose 90 mg/dL (74-106); Magnesium 2.5 mg/dL (1.6-2.6); Potassium 5.2 mmol/L (3.5-5.1); Sodium 133 mmol/L (136-145)
[2023-05-30 21:46] LABS: Albumin 4.2 g/dL (3.2-4.8); Bilirubin, Total < 0.2 mg/dL (0.2-1.0); Total Protein 6.5 g/dL (5.7-8.2)
[2023-05-31 02:30] LABS: Basophils # (auto) 0.1 10 ^3/uL (0-0.2); Basophils % (auto) 1.2 % (0.0-2.0); Eosinophils # (auto) 0.1 10 ^3/uL (0-0.8); Eosinophils % (auto) 0.8 % (0.0-7.0); Hematocrit 25.9 % (41.0-53.0); Hemoglobin 8.7 g/dL (13.5-17.5); Lymphocytes # (auto) 0.6 10 ^3/uL (0.4-5.4); Lymphocytes % (auto) 9.2 % (10.0-50.0); Mean Corpuscular Hemoglobin 33.2 pg (28.0-32.0); Mean Corpuscular Hgb Conc. 33.7 g/dL (32.0-36.0); Mean Corpuscular Volume 98.6 fL (80.0-100.0); Monocytes # (auto) 0.7 10 ^3/uL (0-1.3); Monocytes % (auto) 11.3 % (0.0-12.0); Neutrophils # (auto) 4.9 10 ^3/uL (1.6-8.6); Neutrophils % (auto) 77.5 % (37.0-80.0); Red Blood Cells 2.63 10^6/uL (4.5-5.90); Red Cell Distribution Width 14.9 % (11.8-14.3); White Blood Cell 6.3 10^3/uL (4.4-10.8)
[2023-05-31] MEDS ORDERED: ONDANSETRON HCL 4 MG/2 ML VIAL IV ONE (04:45)
[2023-05-31] MEDS ORDERED: NITROGLYCERIN 2% OINT 1GM PKG TD ONE (04:45)
[2023-05-31] MEDS ORDERED: ASPirin-EC 325mg tab PO ONE (04:45)
[2023-05-31] MEDS ORDERED: MORPHINE SULFATE 4 MG/ML SYR/VIAL IV ONE (04:45)
[2023-05-31] MEDS ORDERED: HYDROcodone-ACET 5/325MG TAB PO PRN (05:45)
[2023-05-31] MEDS ORDERED: NITROGLYCERIN 0.4 MG SL TAB SL PRN (05:45)
[2023-05-31] MEDS ORDERED: DOCUSATE SOD 100 MG CAP PO PRN (05:45)
[2023-05-31] MEDS ORDERED: ACETAMINOPHEN 325 MG TAB PO PRN (05:45)
[2023-05-31] MEDS ORDERED: SODIUM ZIRCONIUM CYCL 10 GM PAK PO ONE (05:45)
[2023-05-31] MEDS ORDERED: HYDROmorphone HCL 2 MG/ML VL/or syr IV PRN (05:45)
[2023-05-31] MEDS ORDERED: cloNIDine HCL 0.1 MG TAB PO PRN (05:45)
[2023-05-31] MEDS ORDERED: hydrALAZINE HCL 20 MG/ML VL IV PRN (05:45)
[2023-05-31] MEDS ORDERED: ONDANSETRON HCL 4 MG/2 ML VIAL IV PRN (05:45)
[2023-05-31] MEDS ORDERED: SODIUM CHLOR 0.9% PF (SALINE LOCK) 10ML VIAL/SYR IV SCH (06:00)
[2023-05-31] MEDS ORDERED: hydrALAZINE HCL 25 MG TAB PO SCH (06:00)
[2023-05-31 08:19] VITALS: BP 163/75; PULSE 77; RESP 18; TEMP 98.1; O2SAT 99
[2023-05-31] MEDS ORDERED: ASPirin-EC 81 mg tab PO SCH (10:00)
[2023-05-31] MEDS ORDERED: ATORVASTATIN 20 MG TAB PO SCH (10:00)
[2023-05-31] MEDS ORDERED: ISOSORBIDE MONONITRATE ER 60 MG TAB PO SCH (10:00)
[2023-05-31] MEDS ORDERED: RANOLAZINE ER 500 MG TAB PO SCH (10:00)
[2023-05-31] MEDS ORDERED: TICAGRELOR 90 MG TAB PO SCH (10:00)
[2023-05-31] MEDS ORDERED: NIFEdipine ER 30 MG TAB PO SCH (10:00)
== END 2023-05-31 11:22 | disposition left against medical advice (07) | DRG 190 ==
LOC: ER 20:46 → TELE 05-31 05:33
PROVIDERS: ADMIT Internal Medicine; ATTEND Internal Medicine
DX: I21.4 Non-ST elevation (NSTEMI) myocardial infarction (principal); I13.2 Hypertensive heart and chronic kidney disease with heart failure and with stage 5 chronic kidney disease, or end stage renal disease; N18.6 End stage renal disease; E11.22 Type 2 diabetes mellitus with diabetic chronic kidney disease; D64.9 Anemia, unspecified; Z80.0 Family history of malignant neoplasm of digestive organs; I24.9 Acute ischemic heart disease, unspecified; I50.9 Heart failure, unspecified; Z95.1 Presence of aortocoronary bypass graft; Z99.2 Dependence on renal dialysis
CPT/HCPCS: 36415; 71045; 80053; 83735; 83880; 84484; 85025; 93005; 96374; 96375; G0378